=== PATIENT | female | born 1990 | race Caucasian/White ===

== ENCOUNTER 2017-06-25 21:00 | Day surgery (SDC) | payer BC ==
[2017-06-25] MEDS ORDERED: Sodium Chloride 0.9% 10 ML Syringe FLUSH PRN (21:28)
[2017-06-25] MEDS ORDERED: Lactated Ringers 1,000 ML IV SCH (21:30)
[2017-06-25] MEDS ORDERED: Lactated Ringers 500 ML IV ONE (21:38)
--- NOTE | 2017-06-25 21:50 | EDM.PDOC ---
ED HPI GENERAL MEDICAL PROBLEM - General Chief Complaint: [employer]KE [employer]ER Problem Stated Complaint: 5 1/2 WEEKS MAYBE MISCARRIAGING Time Seen by Provider: 06/25/17 21:15 Source of Information: Reports: Patient History Limitations: Reports: No Limitations - History of Present Illness INITIAL COMMENTS - FREE TEXT/NARRATIVE: The patient presents with vaginal bleeding and cramping. She was 5 1/2 weeks but recent US showed it was a nonviable . Dr Peterson ordered some misoprosol and since about 3:30pm she has been bleeding and having contractions. She says for the past couple hours she has been soaking a pad per 1/2 hour. She has no fever, chills, cough, congestion, chest pain, shortness of breath, lightheadedness, nausea or vomiting. She is G2. Onset: Sudden Duration: Hour(s): (3:30pm) Location: Reports: Pelvis Quality: Reports: Other (cramping) Severity: Moderate Improves with: Reports: None Worsens with: Reports: None Associated Symptoms: Reports: No Other Symptoms Uterine Pain Score (Numeric/FACES): 4 - Related Data Allergies Allergy/AdvReac Type Severity Reaction Status Date / Time acetaminophen [From Vicodin] Allergy Cannot Verified 06/25/17 21:21 Remember amoxicillin Allergy Cannot Verified 06/25/17 21:21 Remember Fish Containing Products Allergy Difficulty Verified 06/25/17 21:21 Breathing hydrocodone [From Vicodin] Allergy Cannot Verified 06/25/17 21:21 Remember Home Meds: Home Meds Albuterol [Proair HFA] 2 puff INH Q6H PRN 06/25/17 [History] Formoterol/Mometasone [Dulera 100 MCG/5 MCG] 2 puff INH DAILY PRN 06/25/17 [ History] Misoprostol 800 mcg VAG ASDIRECTED 06/25/17 [History] Oxycodone. 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 Musculoskeletal History: Reports: Fracture - Past Surgical History Musculoskeletal Surgical History: Reports: Other (See Below) Other Musculoskeletal Surgeries/Procedures:: Ankle surg x2, back surg x4 Social & Family History - Family History Family Medical History: Noncontributory - Tobacco Use Smoking Status *Q: Never Smoker - Recreational Drug Use Recreational Drug Use: No ED ROS GENERAL - Review of Systems Review Of Systems: See Below Constitutional: Reports: No Symptoms HEENT: Reports: No Symptoms Respiratory: Reports: No Symptoms Cardiovascular: Reports: No Symptoms Endocrine: Reports: No Symptoms GI/Abdominal: Reports: Abdominal Pain. Denies: Diarrhea, Nausea, Vomiting : Reports: Other (Vaginal bleeding and cramping) ED EXAM - Physical Exam Exam: See Below Exam Limited By: No Limitations General Appearance: Alert, No Apparent Distress Ears: Normal External Exam Nose: Normal Inspection Head: Atraumatic, Normocephalic Neck: Normal Inspection Respiratory/Chest: No Respiratory Distress, Lungs Clear, Normal Breath Sounds Cardiovascular: Regular Rate, Rhythm, No Edema, No Murmur GI/Abdominal Exam: Soft, No Organomegaly, No Mass, Tender (Mild tenderness to the lower abdomen) Course - Vital Signs Last Recorded V/S: Last Vital Signs Temp 97.3 F 06/25/17 21:15 Pulse 115 H 06/25/17 21:15 Resp 16 06/25/17 21:15 BP 130/102 H 06/25/17 21:15 Pulse Ox 100 06/25/17 21:15 Orthostatic Blood Pressure [ 91/68 Standing] Orthostatic Blood Pressure [ 108/69 Sitting] Orthostatic Blood Pressure [ 116/80 Supine] - Orders/Labs/Meds Orders: Active Orders 24 hr Category Date Time Status Peripheral IV Care [RC] . DIRECTED Care 06/25/17 21:29 Active OB Transvaginal [US] Stat Exams 06/25/17 21:32 Taken ABO/RH TYPE [BBK] Stat Lab 06/25/17 21:44 Results PATIENT RETYPE [BBK] Stat Lab 06/25/17 21:44 Results Lactated Ringers [Ringers, Lactated] 1,000 ml Med 06/25/17 21:30 Active IV ASDIRECTED Sodium Chloride 0.9% [Saline Flush] Med 06/25/17 21:28 Active 10 ml FLUSH ASDIRECTED PRN Peripheral IV Insertion Adult [OM.PC] Routine Oth 06/25/17 21:28 Ordered Medication Orders Lactated Ringer's (Ringers, Lactated) 1,000 mls @ 150 mls/hr IV ASDIRECTED YANIV Last Admin: 06/25/17 23:13 Dose: 150 mls/hr Sodium Chloride (Saline Flush) 10 ml FLUSH ASDIRECTED PRN PRN Reason: Keep Vein Open Last Admin: 06/25/17 21:58 Dose: 10 ml Labs: Laboratory Tests 06/25/17 06/25/17 06/25/17 Range/Units 21:44 21:44 21:44 WBC 16.57 H (3.98-10.04) K/mm3 RBC 4.24 (3.98-5.22) M/mm3 Hgb 11.6 (11.2-15.7) gm/L Hct 33.5 L (34.1-44.9) % MCV 79.0 L (79.4-94.8) fl MCH 27.4 (25.6-32.2) pg MCHC 34.6 (32.2-35.5) g/dl RDW Std Deviation 39.4 (36.4-46.3) fL Plt Count 295 (182-369) K/mm3 MPV 10.3 (9.4-12.3) fl Neut % (Auto) 69.3 (34.0-71.1) % Lymph % (Auto) 20.9 (19.3-51.7) % [place] % (Auto) 7.1 (4.7-12.5) % Eos % (Auto) 2.2 (0.7-5.8) Baso % (Auto) 0.2 (0.1-1.2) % Neut # (Auto) 11.47 H (1.56-6.13) K/mm3 Lymph # (Auto) 3.47 (1.18-3.74) K/mm3 [place] # (Auto) 1.18 H (0.24-0.36) K/mm3 Eos # (Auto) 0.36 (0.04-0.36) K/mm3 Baso # (Auto) 0.04 (0.01-0.08) K/mm3 HCG, Quant 887.0 mIU/mL Blood Type O POSITIVE Meds: Medications Generic Name Dose Route Start Last Admin Trade Name Freq PRN Reason Stop Dose Admin Lactated Ringer's 1,000 mls @ 150 mls/hr 06/25/17 21:30 06/25/17 23:13 Ringers, Lactated IV 150 mls/hr ASDIRECTED YANIV Administration Sodium Chloride 10 ml 06/25/17 21:28 06/25/17 21:58 Saline Flush FLUSH 10 ml ASDIRECTED PRN Administration Keep Vein Open Discontinued Medications Generic Name Dose Route Start Last Admin Trade Name Armenq PRN Reason Stop Dose Admin Fentanyl 100 mcg 06/25/17 21:29 06/25/17 22:55 Sublimaze IVPUSH 06/25/17 21:30 100 mcg ONETIME ONE Administration Lactated Ringer's 500 mls @ 1,000 mls/hr 06/25/17 21:38 06/25/17 21:51 Ringers, Lactated IV 06/25/17 22:07 1,000 mls/hr .BOLUS ONE Administration Lactated Ringer's 1,000 mls @ 1,000 mls/hr 06/25/17 22:00 06/25/17 22:57 Ringers, Lactated IV 06/25/17 22:37 Not Given .BOLUS ONE Ondansetron HCl 4 mg 06/25/17 21:56 06/25/17 21:57 Zofran IVPUSH 06/25/17 21:57 4 mg ONETIME ONE Administration Ondansetron HCl Confirm 06/25/17 22:01 06/25/17 22:56 Zofran Administered 06/25/17 22:02 Not Given Dose 4 mg .ROUTE .[facility] ONE - Re-Assessments/Exams Free Text/Narrative Re-Assessment/Exam: 06/25/17 21:49 I ordered an IV LR 500ml bolus and then 150mL/hr, US, and labs. I called Dr Peterson and she wanted to know what the US shows. 06/25/17 23:34 Her WBC was elevated at 16.57. Her Hgb was normal at 11.6. Her HCG was 887. Her blood type is O positive. Her US shows possible single intrauterine gestational sac measuring 5 weeks 0 day. No yolk sac, embryo or heart rate identified. The patient was light headed and tachycardic when she stood up to get cleaned. She soaked an adult depends and she had a large clot. I called Dr Peterson and she will come take the patient for a D&C. Departure - Departure Time of Disposition: 23:30 Disposition: Refer to Observation Condition: Serious Clinical Impression: Incomplete , Vaginal bleeding - Discharge Information Referrals: Mary Peterson MD [Primary Care Provider] - Forms: ED Department Discharge - My Orders Last 24 Hours: My Active Orders 06/25/17 21:28 Sodium Chloride 0.9% [Saline Flush] 10 ml FLUSH ASDIRECTED PRN Peripheral IV Insertion Adult [OM.PC] Routine 06/25/17 21:29 Peripheral IV Care [RC] . DIRECTED 06/25/17 21:30 Lactated Ringers [Ringers, Lactated] 1,000 ml IV ASDIRECTED 06/25/17 21:32 OB Transvaginal [US] Stat 06/25/17 21:44 ABO/RH TYPE [BBK] Stat PATIENT RETYPE [BBK] Stat - Assessment/Plan Last 24 Hours: My Active Orders 06/25/17 21:28 Sodium Chloride 0.9% [Saline Flush] 10 ml FLUSH ASDIRECTED PRN Peripheral IV Insertion Adult [OM.PC] Routine 06/25/17 21:29 Peripheral IV Care [RC] . DIRECTED 06/25/17 21:30 Lactated Ringers [Ringers, Lactated] 1,000 ml IV ASDIRECTED 06/25/17 21:32 OB Transvaginal [US] Stat 06/25/17 21:44 ABO/RH TYPE [BBK] Stat PATIENT RETYPE [BBK] Stat
[2017-06-25] MEDS: fentaNYL 100 MCG/2 ML SDV IVPUSH ONE ×2 (21:52→22:55)
[2017-06-25] MEDS ORDERED: Ondansetron 4 MG/2 ML SDV IVPUSH ONE (21:56)
[2017-06-25] MEDS ORDERED: Lactated Ringers 1,000 ML IV ONE (22:00)
[2017-06-25] MEDS ORDERED: Ondansetron 4 MG/2 ML SDV ONE (22:01)
--- NOTE | 2017-06-25 23:55 | PCM.LDHP ---
L&D History of Present Illness - General Date of Service: 06/25/17 Admit Problem/Dx: Patient Status Order with Admit Dx/Problem 06/25/17 23:48 Patient Status [ADT] Routine Admission Diagnosis/Problem Admission Diagnosis/Problem Incomplete Source of Information: Patient - History of Present Illness Introduction:: 27 year old who had first positive test May 16 and has been seeing me for eval for question of non-viable and was seen in clinic today with ultrasound demonstrating nonviable and decided to use cytotec to attempt to facilitate passage presents with significant bleeding. Ultrasound shows continued retained POCs. Patient understood risks of dilation and curettage and knew that might be outcome with misoprostol. Understands and wishes to proceed. Pain Score: 7 - Related Data Allergies/Adverse Reactions: Allergies Allergy/AdvReac Type Severity Reaction Status Date / Time acetaminophen [From Vicodin] Allergy Cannot Verified 06/25/17 21:21 Remember amoxicillin Allergy Cannot Verified 06/25/17 21:21 Remember Fish Containing Products Allergy Difficulty Verified 06/25/17 21:21 Breathing hydrocodone [From Vicodin] Allergy Cannot Verified 06/25/17 21:21 Remember Home Medications: Home Meds Albuterol [Proair HFA] 2 puff INH Q6H PRN 06/25/17 [History] Formoterol/Mometasone [Dulera 100 MCG/5 MCG] 2 puff INH DAILY PRN 06/25/17 [ History] Misoprostol 800 mcg VAG ASDIRECTED 06/25/17 [History] Oxycodone. 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 Musculoskeletal History: Reports: Fracture - Past Surgical History Musculoskeletal Surgical History: Reports: Other (See Below) Other Musculoskeletal Surgeries/Procedures:: Ankle surg x2, back surg x4 Social & Family History - Family History Family Medical History: Noncontributory - Tobacco Use Smoking Status *Q: Never Smoker - Recreational Drug Use Recreational Drug Use: No H&P Review of Systems - Review of Systems: Review Of Systems: See Below General: Reports: No Symptoms HEENT: Reports: No Symptoms Pulmonary: Reports: No Symptoms Cardiovascular: Reports: No Symptoms Gastrointestinal: Reports: No Symptoms Genitourinary: Reports: Other Musculoskeletal: Reports: No Symptoms Skin: Reports: No Symptoms Psychiatric: Reports: No Symptoms Neurological: Reports: No Symptoms Hematologic/Lymphatic: Reports: No Symptoms Immunologic: Reports: No Symptoms L&D Exam - Exam Exam: See Below - Vital Signs Vital Signs: Last Vital Signs Temp 36.3 C 06/25/17 21:15 Pulse 115 H 06/25/17 21:15 Resp 16 06/25/17 21:15 BP 130/102 H 06/25/17 21:15 Pulse Ox 100 06/25/17 21:15 Orthostatic Blood Pressure [ 91/68 Standing] Orthostatic Blood Pressure [ 108/69 Sitting] Orthostatic Blood Pressure [ 116/80 Supine] Weight: 78.925 kg - Exam General: Alert, Oriented, Cooperative (pale, supine), Other HEENT: PERRLA, Conjunctiva Clear, EACs Clear, EOMI, Hearing Intact, Mucosa Moist & [place], Nares Patent, Normal Nasal Septum, Posterior Pharynx Clear, TMs Clear Neck: Supple, Trachea Midline Lungs: Clear to Auscultation, Normal Respiratory Effort Cardiovascular: Regular Rate, Regular Rhythm GI/Abdominal Exam: Normal Bowel Sounds, Soft, Non-Tender, No Organomegaly, No Distention, No Abnormal Bruit, No Mass, Pelvis Stable Back Exam: Normal Inspection, Full Range of Motion Extremities: Normal Inspection, Normal Range of Motion, Non-Tender, No Pedal Edema, Normal Capillary Refill Skin: Warm, Dry, Intact Neurological: Cranial Nerves Intact, Reflexes Equal Bilateral Psychiatric: Alert, Normal Affect, Normal Mood - Patient Data Lab Results Last 24 hrs: Laboratory Results - last 24 hr 06/25/17 06/25/17 06/25/17 Range/Units 21:44 21:44 21:44 WBC 16.57 H (3.98-10.04) K/mm3 RBC 4.24 (3.98-5.22) M/mm3 Hgb 11.6 (11.2-15.7) gm/L Hct 33.5 L (34.1-44.9) % MCV 79.0 L (79.4-94.8) fl MCH 27.4 (25.6-32.2) pg MCHC 34.6 (32.2-35.5) g/dl RDW Std Deviation 39.4 (36.4-46.3) fL Plt Count 295 (182-369) K/mm3 MPV 10.3 (9.4-12.3) fl Neut % (Auto) 69.3 (34.0-71.1) % Lymph % (Auto) 20.9 (19.3-51.7) % [place] % (Auto) 7.1 (4.7-12.5) % Eos % (Auto) 2.2 (0.7-5.8) Baso % (Auto) 0.2 (0.1-1.2) % Neut # (Auto) 11.47 H (1.56-6.13) K/mm3 Lymph # (Auto) 3.47 (1.18-3.74) K/mm3 [place] # (Auto) 1.18 H (0.24-0.36) K/mm3 Eos # (Auto) 0.36 (0.04-0.36) K/mm3 Baso # (Auto) 0.04 (0.01-0.08) K/mm3 HCG, Quant 887.0 mIU/mL Blood Type O POSITIVE Result Diagrams: 06/25/17 21:44 Problem List Initiated/Reviewed/Updated: Yes Orders Last 24hrs: Active Orders 24 hr Category Date Time Status Patient Status [ADT] Routine ADT 06/25/17 23:48 Active Peripheral IV Care [RC] . DIRECTED Care 06/25/17 21:29 Active OB Transvaginal [US] Stat Exams 06/25/17 21:32 Taken ABO/RH TYPE [BBK] Stat Lab 06/25/17 21:44 Results PATIENT RETYPE [BBK] Stat Lab 06/25/17 21:44 Results Lactated Ringers [Ringers, Lactated] 1,000 ml Med 06/25/17 21:30 Active IV ASDIRECTED Sodium Chloride 0.9% [Saline Flush] Med 06/25/17 21:28 Active 10 ml FLUSH ASDIRECTED PRN Peripheral IV Insertion Adult [OM.PC] Routine Oth 06/25/17 21:28 Ordered Schedule Procedure [COMM] Stat Oth 06/25/17 23:49 Ordered Medication Orders Lactated Ringer's (Ringers, Lactated) 1,000 mls @ 150 mls/hr IV ASDIRECTED YANIV Last Admin: 06/25/17 23:13 Dose: 150 mls/hr Sodium Chloride (Saline Flush) 10 ml FLUSH ASDIRECTED PRN PRN Reason: Keep Vein Open Last Admin: 06/25/17 21:58 Dose: 10 ml Assessment/Plan Comment:: Incomplete with hemorrhage. Proceed with dilation and curettage.
--- NOTE | 2017-06-26 00:01 | PCM.PREANE ---
Preanesthetic Assessment - Procedure Proposed Procedure: Uterine Suction D&C - Anesthesia/Transfusion/Family Hx Anesthesia History: Prior Anesthesia Without Reaction Family History of Anesthesia Reaction: No Transfusion History: No Prior Transfusion(s) - Review of Systems General: No Symptoms Pulmonary: Other (asthma- seasonal uses inlahers prn) Cardiovascular: No Symptoms Gastrointestinal: No Symptoms Neurological: No Symptoms Other: Reports: None - Physical Assessment NPO Status Date: 06/25/17 NPO Status Time: 18:30 O2 Sat by Pulse Oximetry: 100 Respiratory Rate: 16 Vital Signs: Last Vital Signs Temp 36.3 C 06/25/17 21:15 Pulse 115 H 06/25/17 21:15 Resp 16 06/25/17 21:15 BP 130/102 H 06/25/17 21:15 Pulse Ox 100 06/25/17 21:15 Orthostatic Blood Pressure [ 91/68 Standing] Orthostatic Blood Pressure [ 108/69 Sitting] Orthostatic Blood Pressure [ 116/80 Supine] Height: 1.6 m Weight: 78.925 kg ASA Class: 2E Mental Status: Alert & Oriented x3 Airway Class: Mallampati = 2 Dentition: Reports: Normal Dentition Thyro-Mental Finger Breadths: 3 Mouth Opening Finger Breadths: 3 ROM/Head Extension: Full Lungs: Clear to Auscultation, Normal Respiratory Effort Cardiovascular: Regular Rate, Regular Rhythm - Lab Values: Laboratory Last Values WBC 16.57 K/mm3 (3.98-10.04) H 06/25/17 21:44 RBC 4.24 M/mm3 (3.98-5.22) 06/25/17 21:44 Hgb 11.6 gm/L (11.2-15.7) 06/25/17 21:44 Hct 33.5 % (34.1-44.9) L 06/25/17 21:44 MCV 79.0 fl (79.4-94.8) L 06/25/17 21:44 MCH 27.4 pg (25.6-32.2) 06/25/17 21:44 MCHC 34.6 g/dl (32.2-35.5) 06/25/17 21:44 RDW Std Deviation 39.4 fL (36.4-46.3) 06/25/17 21:44 Plt Count 295 K/mm3 (182-369) 06/25/17 21:44 MPV 10.3 fl (9.4-12.3) 06/25/17 21:44 Neut % (Auto) 69.3 % (34.0-71.1) 06/25/17 21:44 Lymph % (Auto) 20.9 % (19.3-51.7) 06/25/17 21:44 [place] % (Auto) 7.1 % (4.7-12.5) 06/25/17 21:44 Eos % (Auto) 2.2 (0.7-5.8) 06/25/17 21:44 Baso % (Auto) 0.2 % (0.1-1.2) 06/25/17 21:44 Neut # (Auto) 11.47 K/mm3 (1.56-6.13) H 06/25/17 21:44 Lymph # (Auto) 3.47 K/mm3 (1.18-3.74) 06/25/17 21:44 [place] # (Auto) 1.18 K/mm3 (0.24-0.36) H 06/25/17 21:44 Eos # (Auto) 0.36 K/mm3 (0.04-0.36) 06/25/17 21:44 Baso # (Auto) 0.04 K/mm3 (0.01-0.08) 06/25/17 21:44 HCG, Quant 887.0 mIU/mL 06/25/17 21:44 Blood Type O POSITIVE 06/25/17 21:44 - Allergies Allergies/Adverse Reactions: Allergies Allergy/AdvReac Type Severity Reaction Status Date / Time acetaminophen [From Vicodin] Allergy Cannot Verified 06/25/17 21:21 Remember amoxicillin Allergy Cannot Verified 06/25/17 21:21 Remember Fish Containing Products Allergy Difficulty Verified 06/25/17 21:21 Breathing hydrocodone [From Vicodin] Allergy Cannot Verified 06/25/17 21:21 Remember - Blood Blood Available: No Product(s) Available: None - Anesthesia Plan Pre-Op Medication Ordered: None - Acknowledgements Anesthesia Type Planned: General Anesthesia Pt an Appropriate Candidate for the Planned Anesthesia: Yes Alternatives and Risks of Anesthesia Discussed w Pt/Guardian: Yes Pt/Guardian Understands and Agrees with Anesthesia Plan: Yes PreAnesthesia Questionnaire - Past Health History Medical/Surgical History: Denies 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 1 tab PO Q6H 06/25/17 [History] - CURRENT (IN HOUSE) MEDS Current Meds: Current Medications Lactated Ringer's (Ringers, Lactated) 1,000 mls @ 150 mls/hr IV ASDIRECTED YANIV Last Admin: 06/25/17 23:13 Dose: 150 mls/hr Sodium Chloride (Saline Flush) 10 ml FLUSH ASDIRECTED PRN PRN Reason: Keep Vein Open Last Admin: 06/25/17 21:58 Dose: 10 ml Discontinued Medications Fentanyl (Sublimaze) 100 mcg IVPUSH ONETIME ONE Stop: 06/25/17 21:30 Last Admin: 06/25/17 22:55 Dose: 100 mcg Lactated Ringer's (Ringers, Lactated) 500 mls @ 1,000 mls/hr IV .BOLUS ONE Stop: 06/25/17 22:07 Last Admin: 06/25/17 21:51 Dose: 1,000 mls/hr Lactated Ringer's (Ringers, Lactated) 1,000 mls @ 1,000 mls/hr IV .BOLUS ONE Stop: 06/25/17 22:37 Last Admin: 06/25/17 22:57 Dose: Not Given Ondansetron HCl (Zofran) 4 mg IVPUSH ONETIME ONE Stop: 06/25/17 21:57 Last Admin: 06/25/17 21:57 Dose: 4 mg Ondansetron HCl (Zofran) Confirm Administered Dose 4 mg .ROUTE .STK-MED ONE Stop: 06/25/17 22:02 Last Admin: 06/25/17 22:56 Dose: Not Given
[2017-06-26] MEDS ORDERED: Lidocaine 1% 4 ML ONE (00:27)
[2017-06-26] MEDS ORDERED: Ondansetron 4 MG/2 ML SDV ONE (00:27)
[2017-06-26] MEDS ORDERED: Midazolam 1 MG/ML 2 ML SDV ONE (00:27)
[2017-06-26] MEDS ORDERED: fentaNYL 250 MCG/5 ML SDV ONE (00:27)
[2017-06-26] MEDS ORDERED: Dexamethasone 4 MG/ML 5 ML MDV ONE (00:27)
[2017-06-26] MEDS ORDERED: Succinylcholine/Normal Saline 100 MG/5 ML Syringe ONE (00:27)
[2017-06-26] MEDS ORDERED: Propofol 200 MG/20 ML SDV ONE (00:27)
--- NOTE | 2017-06-26 00:45 | PCM.OPNOTE ---
- General Post-Op/Procedure Note Date of Surgery/Procedure: 06/26/17 Operative Procedure(s): suction dilation and curettage Findings: Products of conception. Pre Op Diagnosis: incomplete Post-Op Diagnosis: Same Anesthesia Technique: General ET Tube Primary Surgeon: Mary Huddleston Anesthesia Provider: Robbie Oviedo Fluid Replacement, Intraop: 900 Output, Urine Amount: 100 EBL in mLs: 25 Complications: None Condition: Good Free Text/Narrative:: Patient taken to OR after RBA discussed. She SSU and wishes to proceed. GETA initiated. Prepped and draped in lithotomy in lori stirups. Self retaining speculum placed. Anterior lip of cervix grasped with an allis. No dilation required. 7 mm suction curette passed. Multiple passes until good janet obtained. Minimal bleeding. Instruments removed and patient awakened and taken to pacu in good condition.
--- NOTE | 2017-06-26 00:51 | PCM.POSTAN ---
POST ANESTHESIA ASSESSMENT - MENTAL STATUS Mental Status: Alert, Oriented - VITAL SIGNS Pulse Rate: 105 SaO2: 100 Resp Rate: 14 Blood Pressure: 127/83 Temperature: 37.4 C - RESPIRATORY Respiratory Status: Respiratory Rate WNL, Airway Patent, O2 Saturation Stable, Supplemental Oxygen - CARDIOVASCULAR CV Status: Pulse Rate WNL, Blood Pressure Stable - GASTROINTESTINAL GI Status: No Symptoms - PAIN Pain Score: 0 - POST OP HYDRATION Hydration Status: Adequate & Stable
[2017-06-26] MEDS ORDERED: Ketorolac 30 MG/ML SDV ONE (00:53)
[2017-06-26] MEDS ORDERED: Meperidine PF 50 MG/ML Syringe IVPUSH PRN (00:59)
[2017-06-26] MEDS ORDERED: fentaNYL 100 MCG/2 ML SDV IVPUSH PRN (00:59)
[2017-06-26] MEDS ORDERED: diphenhydrAMINE 50 MG/ML SDV IVPUSH PRN (00:59)
[2017-06-26] MEDS ORDERED: Ondansetron 4 MG/2 ML SDV IVPUSH PRN (00:59)
[2017-06-26] MEDS ORDERED: HYDROmorphone 0.5 MG/0.5 ML Syringe IVPUSH ONE (00:59)
--- NOTE | 2017-06-26 01:32 | PCM48HPAN ---
Post Anesthesia Note - EVALUATION WITHIN 48HRS OF ANESTHETIC Vital Signs in Normal Range: Yes Patient Participated in Evaluation: Yes Respiratory Function Stable: Yes Airway Patent: Yes Cardiovascular Function Stable: Yes Hydration Status Stable: Yes Pain Control Satisfactory: Yes Nausea and Vomiting Control Satisfactory: Yes Mental Status Recovered: Yes
--- NOTE | 2017-06-26 08:49 | US ---
First trimester obstetrical ultrasound: Multiple real-time images were obtained transvaginally. Thickened heterogeneous endometrium is seen. Minimal cystic area is identified and difficult to exclude very small gestational sac. Sac size measures approximately 0.45 cm correlating to 5 weeks 0 days. No pole or yolk sac is seen. Ovaries are unremarkable. Impression: 1. Small cystic area within a heterogeneous endometrium. Gestational sac is possible but no yolk sac or pole seen at this time. If patient does not miscarry, follow-up study could be considered in 11 days to further evaluate. Diagnostic code #3 Agree with preliminary report issued by [employer] ([employer] preliminary report dictated on 06/26/17, 12:16 AM Central Time)
== END 2017-06-26 02:12 | disposition home or self-care (01) ==
LOC: JD.ED 21:00 → MERGE 23:48 → JD.SDS 23:48
PROVIDERS: ATTEND Obstetrics & Gynecology
DX: O03.4 Incomplete spontaneous abortion without complication (principal); Z88.1 Allergy status to other antibiotic agents; Z88.8 Allergy status to other drugs, medicaments and biological substances; Z91.013 Allergy to seafood; Z79.899 Other long term (current) drug therapy
CPT/HCPCS: 36415; 59812; 76817; 84702; 85025; 86900; 86901; 96361; 96374; 96375; 99285; J0330; J1100; J1885; J2250; J2405; J3010; J7050; J7120; 01965; 99284; J2001; J2704

== ENCOUNTER 2018-06-17 11:31 | Observation (INO) | payer BC ==
[2018-06-17] MEDS ORDERED: Lactated Ringers 1,000 ML IV ONE (13:50)
[2018-06-17] MEDS ORDERED: Sodium Chloride 0.9% 10 ML Syringe FLUSH PRN (15:42)
[2018-06-17] MEDS ORDERED: Lactated Ringers 1,000 ML IV SCH (15:45)
[2018-06-17] MEDS ORDERED: Lactated Ringers 1,000 ML ONE (15:52)
--- NOTE | 2018-06-17 15:53 | PCM.LDHP ---
L&D History of Present Illness - General Date of Service: 06/17/18 Admit Problem/Dx: Patient Status Order with Admit Dx/Problem 06/17/18 15:42 Patient Status [ADT] Routine Admission Diagnosis/Problem Admission Diagnosis/Problem labor Source of Information: Patient History Limitations: Reports: No Limitations - History of Present Illness Introduction:: Kalie Martinez is a 28 year old at 35 weeks 0 days by LMP consistent with 10 week ultrasound who was sent to labor and delivery from the clinic after having contractions and was found to be 1 cm dilated. She states that the contractions were becoming more frequent and painful while she was on labor and delivery. She states that not all of the contractions were painful but they were becoming much more painful while she has been on labor and delivery. She was initially oral rehydrating that did not cause any change in her contractions and then was given a IV fluid bolus that did not cause any change with her contractions. She denies any leaking of fluid or vaginal bleeding. Reports good movement. Timing/Duration: Reports: constant/continuous (every 2-6 minutes), getting worse Location, : Reports: Lower back, Pelvic, Uterus Quality: Reports: Pressure, Throbbing Severity: Moderate Improves with: Reports: None Worsens with: Reports: None Associated Symptoms: Denies: vaginal bleeding, vaginal discharge, vaginal fluid Present Illness Comments:: Kalie Martinez is a 28-year-old 0-0 at 35 weeks 0 days by LMP consistent with 10 week ultrasound. She has had routine care with Dr. Hurst since 10 weeks gestational age. Review of her labs shows O+ blood type with negative antibody screen. Her hematocrit was 40.5 with hemoglobin of 14.0 and platelets of 315 on 01/01/2018. She is rubella immune. Her RPR, hepatitis B surface antigen and HIV tests were all negative. Her urine culture was negative and only showed signs of contamination. Her gonorrhea and chlamydia test are both negative. Her anatomy ultrasound was normal with out any abnormalities. No evidence of placenta previa. Her 1 hour glucose test was normal at 97. Her repeat hematocrit was 36.4 with hemoglobin of 12.2 and platelets of 308 on 04/16/2018. She received TDaP vaccine on 05/28/2018. She had GBS swab done in the clinic on 06/17/2018 when she initially was seen for these contractions and possible labor. 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: Spontaneous at early gestation on 07/10/2016 G2: Spontaneous at early gestation on 06/12/2017 G3: Current Her has been complicated by: * GBS unknown with penicillin allergy with severe anaphylaxis with swelling of her tongue and rash * History of asthma well controlled on medications * History of back surgery * UTI in - Related Data Allergies/Adverse Reactions: Allergies Allergy/AdvReac Type Severity Reaction Status Date / Time acetaminophen [From Vicodin] Allergy Cannot Verified 06/25/17 21:21 Remember amoxicillin Allergy Cannot Verified 06/25/17 21:21 Remember Fish Containing Products Allergy Difficulty Verified 06/25/17 21:21 Breathing hydrocodone [From Vicodin] Allergy Cannot Verified 06/25/17 21:21 Remember Home Medications: Home Meds Albuterol [Proair HFA] 2 puff INH Q6H PRN 06/25/17 [History] Formoterol/Mometasone [Dulera 100 MCG/5 MCG] 2 puff INH DAILY PRN 06/25/17 [ History] Oxycodone. 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 History: Reports: Spontaneous : 3 Para: 0 Musculoskeletal History: Reports: Fracture - Past Surgical History Musculoskeletal Surgical History: Reports: Other (See Below) Other Musculoskeletal Surgeries/Procedures:: Ankle surg x2, back surg x4 Social & Family History - Family History Family Medical History: Noncontributory - Tobacco Use Smoking Status *Q: Never Smoker Tobacco Use Within Last Twelve Months: No - Tobacco Core Measures Tobacco Use/Smoking Within Last 30 Days: No Smokeless Tobacco Use in Last 30 Days: No - Alcohol Use Alcohol Use History: No - Recreational Drug Use Recreational Drug Use: No Drug Use in Last 12 Months: No H&P Review of Systems - Review of Systems: Review Of Systems: See Below General: Denies: Fever, Chills, Malaise, Weakness HEENT: Denies: Post Nasal Drip, Sinus Congestion, Sore Throat, Visual Changes Pulmonary: Denies: Shortness of Breath, Wheezing Cardiovascular: Denies: Chest Pain, Palpitations Gastrointestinal: Denies: Abdominal Pain, Constipation, Diarrhea, Nausea, Vomiting Genitourinary: Denies: Dysuria, Frequency, Burning, Pain, Urgency Musculoskeletal: Denies: Back Pain Psychiatric: Denies: Depression, Anxiety Immunologic: Reports: Anaphylaxis (with amoxicillin) L&D Exam - Exam Exam: See Below - Vital Signs Vital Signs: HR: 95 BP: 127/77 Temp: 98.4 F RR: 18 Weight: 95.799 kg - OB Specific Contraction Duration (sec): 45-75 Contraction Frequency (min): 2-4 Contraction Intensity: Moderate Movement: Active Heart Tones: Present Heart Tones per Min: 145 (+15 x 15 accelerations, no decelerations) Heart Rate (FHR) Variability: Moderate (6-25 bmp) Presentation: Vertex Estimated Weight: 6.5-7 lbs by [place] - Salazar Score Salazar Score Cervix Position: Posterior Slaazar Score Consistency: Soft Salazar Score Effacement: 51-70% (70%) Salazar Score Dilation: 1-2 cm (2.5 cm) Salazar Score Infant's Station: -2 Salazar Score Total: 6 - Exam General: Alert, Oriented HEENT: Conjunctiva Clear, EOMI Neck: Supple, Trachea Midline Lungs: Clear to Auscultation, Normal Respiratory Effort Cardiovascular: Regular Rate, Regular Rhythm GI/Abdominal Exam: Soft, Non-Tender, No Distention. No: Guarding, Rigid, Rebound Genitourinary: Normal external exam Extremities: Normal Inspection, No Pedal Edema Skin: Warm, Dry, Intact Psychiatric: Alert, Normal Affect, Normal Mood - Problem List (1) 35 weeks gestation of SNOMED Code(s): 76668129 ICD Code: Z3A.35 - 35 WEEKS GESTATION OF Status: Acute Current Visit: Yes (2) labor SNOMED Code(s): 1838263 ICD Code: O60.00 - LABOR WITHOUT DELIVERY, UNSPECIFIED TRIMESTER Status: Acute Current Visit: Yes (3) Asthma SNOMED Code(s): 403607537 ICD Code: J45.909 - UNSPECIFIED ASTHMA, UNCOMPLICATED Status: Acute Current Visit: Yes (4) Penicillin allergy SNOMED Code(s): 04143389 ICD Code: Z88.0 - ALLERGY STATUS TO PENICILLIN Status: Acute Current Visit: Yes Problem List Initiated/Reviewed/Updated: Yes Orders Last 24hrs: Active Orders 24 hr Category Date Time Status Patient Status [ADT] Routine ADT 06/17/18 15:42 Ordered Activity as Tolerated [RC] PFP Care 06/17/18 15:42 Ordered Heart Tones [RC] ASDIRECTED Care 06/17/18 15:43 Ordered Notify Provider [RC] PRN Care 06/17/18 15:42 Ordered Peripheral IV Care [RC] . DIRECTED Care 06/17/18 15:43 Ordered Vital Signs [RC] PER UNIT ROUTINE Care 06/17/18 15:42 Ordered Regular Diet [DIET] Diet 06/17/18 Dinner Active CBC W/O DIFF,HEMOGRAM [HEME] Routine Lab 06/17/18 15:42 Stop Req Lactated Ringers [Ringers, Lactated] 1,000 ml Med 06/17/18 15:45 Ordered IV ASDIRECTED Sodium Chloride 0.9% [Saline Flush] Med 06/17/18 15:42 Ordered 10 ml FLUSH ASDIRECTED PRN Vancomycin [Vancocin] 1 gm Med 06/17/18 15:45 Ordered Sodium Chloride 0.9% [Normal Saline] 250 ml IV Q12H Electronic Heart Tones Ext w TOCO [WOMSER] Oth 06/17/18 15:42 Ordered Routine Electronic Heart Tones Internal [WOMSER] Per Unit Oth 06/17/18 15:42 Ordered Routine Peripheral IV Insertion Adult [OM.PC] Routine Oth 06/17/18 15:42 Ordered Resuscitation Status Routine Resus Stat 06/17/18 15:42 Ordered Medication Orders Lactated Ringer's (Ringers, Lactated) 1,000 mls @ 125 mls/hr IV ASDIRECTED YANIV Vancomycin HCl 1 gm/ Sodium (Chloride) 250 mls @ 250 mls/hr IV Q12H YANIV Sodium Chloride (Saline Flush) 10 ml FLUSH ASDIRECTED PRN PRN Reason: Keep Vein Open Assessment/Plan Comment:: * Patient at 35 weeks 0 days with suspected labor given cervical change from 1 to 2.5 cm or the course of 4-5 hours. 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 Recommendation was for her transfer to [place] for higher level of care. This is discussed with the patient and she was in agreement with this plan. Plan is to transfer patient to [facility] and accepting physician was Dr. hicks. * Patient with labor at 35 weeks gestational age and unknown GBS status. GBS swab was collected in the clinic today. Patient has a history of penicillin allergy with anaphylaxis with swelling of her tongue and rash. She has never tried cephalosporins and so decision was made to start patient on vancomycin for GBS prophylaxis. She will be given vancomycin 1 g IV with plan for continuation every 12 hours until delivery or until labor has stopped. * Patient to be on LR@125 mL per hour for total amount of fluid with IV antibiotics. * Discussed possible betamethasone injection for lung maturity with Dr. hicks and felt that this was not indicated at this time. * Patient to be transferred by ambulance secondary to antibiotic need * Patient to be transferred as soon as possible to [facility] in [place] Konstantin Browning M.D. 4:04 PM 06/17/2018
== END 2018-06-17 16:45 ==
LOC: JD.OB 11:31 → UNDOADMOB 11:31 → JD.OB 15:42
PROVIDERS: ADMIT Obstetrics & Gynecology; ATTEND Obstetrics & Gynecology
DX: O60.03 Preterm labor without delivery, third trimester (principal); O99.513 Diseases of the respiratory system complicating pregnancy, third trimester; J45.909 Unspecified asthma, uncomplicated; Z3A.35 35 weeks gestation of pregnancy; Z87.59 Personal history of other complications of pregnancy, childbirth and the puerperium; Z88.0 Allergy status to penicillin; Z91.013 Allergy to seafood; Z88.6 Allergy status to analgesic agent; Z88.5 Allergy status to narcotic agent
CPT/HCPCS: 59025; 96365; 96366; 96367; J3370; J7050; J7120; 96361; G0378

== ENCOUNTER 2018-07-08 22:53 | Inpatient (IN) | payer BC ==
[2018-07-08] MEDS ORDERED: Sodium Chloride 0.9% 10 ML Syringe FLUSH PRN (23:18)
[2018-07-08] MEDS ORDERED: Oxytocin/Lactated Ringers 10 UNIT/1,000 ML BAG IV SCH ×2 (23:30)
[2018-07-09] MEDS: Lactated Ringers 1,000 ML IV SCH ×3 (00:14→14:32)
--- NOTE | 2018-07-09 07:58 | PCM.LDHP ---
<Quincy Morse - Last Filed: 07/09/18 13:01> L&D History of Present Illness - General Date of Service: 07/09/18 Admit Problem/Dx: Patient Status Order with Admit Dx/Problem 07/08/18 23:19 Patient Status [ADT] Routine Admission Diagnosis/Problem Admission Diagnosis/Problem Source of Information: Patient History Limitations: Reports: No Limitations - History of Present Illness Introduction:: Kalie is a 28 year old 3 para 0020 white female who is brought in this morning for starting of labor. Currently at 38 weeks 05/18. FANNY is 07/22/2018. Her last menstrual period was October 15 and the date is supported by two ultrasounds conducted on 03/06/2018, 01/03/2018. She has previously has two spontaneous abortions. The first being lost at 7 weeks and the second being lost in 6 weeks. She also had labor with this at 35 weeks. course otherwise has been uneventful. Blood type is O+ with negative antibody screen. VDRL/RPR is negative. Rubella is reactive for immunity. HBsAg is negative, HIV is negative She is group B strep positive. Allergies: Vicodin- nausea, vomiting, diarrhea, vertigo amoxicillin - hives, anaphylaxis Past medical history: States a seasonal asthma that is worst in summer and aggravated by cigarette smoke. Under good control now with limited use of albuterol in non summer months. Denies any other medical history. Medications: Tylenol for pain Prenatals Proair Dulera Albuterol rescue inhaler (last used in December) Tums Past surgical history: History of 4 x back surgeries mainly L4-L5 with hardware 2x ankle surgeries heel cord lengthening Family History: Father alive and well 50 yo history unknown Mother alive 50 yo - DM1 since 11yo, MGM- HTN PGF- prostate CA, HTN, history of HI PGM-Colon CA Social: Lives in [place], [place] in house with one dog and Isaac. She feels safe at home. 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 Denies illicit or prescription drug abuse, denies any tobacco history, admits caffeine 1-2 weekly. No alcohol during , only state rare/ monthly drinking beforehand. Review of systems: General: Patient in mild to moderate distress from contractions but is able to manage says 5/10 for pain and cannot find a comfortable position. Skin: negative HEENT: negative Cardiovascular: negative Respiratory: negative Breasts: negative GI: negative : negative Heme: negative Musculoskeletal: negative Neurological: negative Psychological: negative Endocrine: negative Physical exam: Well developed well nourished pleasant patient in mild to moderate distress intermittently from contractions. Skin is pink warm and dry without lesions. HEENT is PERRL, clear sclera, normocephalic, oral mucosa is moist and pink without swelling or erythema. Neck is supple examination shows trachea is midline. Lungs are clear equal and bilateral with good breath sounds in all [place] Cardiovascular shows regular rate and rhythm with normal S1 and S2 with no appreciated murmurs rubs or gallops. Abdomen is gravid, soft with positive bowel sounds in all quadrants. Extremities show appropriate strength and ROM Neurologically CN2-12 intact Assessment and Plan: 1. 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 2. History of seasonal asthma, well controlled. 3. Group B strept positive, allergic to amoxicillin with anaphylaxis. Will need appropriate antibiotic coverage during labor. 4. O+ blood type, no need for RhoGAM 5. Wishes to attempt breast feeding, may need assistance from nursing staff. Timing/Duration: Reports: minutes: (Regular contractions, about 4-7 minutes apart), intermittent Quality: Reports: Dull, Pressure Pain Score: 5 Improves with: Reports: None Worsens with: Reports: None - Related Data Allergies/Adverse Reactions: Allergies Allergy/AdvReac Type Severity Reaction Status Date / Time acetaminophen [From Vicodin] Allergy Diarrhea Verified 07/09/18 01:35 amoxicillin Allergy Difficulty Verified 07/09/18 01:35 Breathing Fish Containing Products Allergy Difficulty Verified 06/25/17 21:21 Breathing hydrocodone [From Vicodin] Allergy Diarrhea Verified 07/09/18 01:35 Home Medications: Home Meds Albuterol [Proair HFA] 2 puff INH Q6H PRN 06/25/17 [History] Formoterol/Mometasone [Dulera 100 MCG/5 MCG] 2 puff INH DAILY PRN 06/25/17 [ History] Oxycodone. 1 tab PO Q6H 06/25/17 [History] miSOPROStol [Misoprostol] 800 mcg VAG ASDIRECTED 06/25/17 [History] Past Medical History Other HEENT History: glasses for correction, last eye exam years ago Cardiovascular History: Reports: None (denies cardiac history) Respiratory History: Reports: Asthma, Pneumothorax (complication from one back surgery) Other Respiratory History: admits history of asthma aggitated by Summer season and cigarette smoke, currently has proair, rescue inhailer (last used December), and dulera. Gastrointestinal History: Reports: None Genitourinary History: Reports: None [employer] History: Reports: Spontaneous : 3 Para: 0 LMP (Approximate): Other OB/BYN History: . history of 2 spontaneous miscarriages #1 at 7weeks#2 at 6 weeks Musculoskeletal History: Reports: Fracture Neurological History: Reports: None Psychiatric History: Reports: None Endocrine/Metabolic History: Reports: None Hematologic History: Reports: None Immunologic History: Reports: None Oncologic (Cancer) History: Reports: None Dermatologic History: Reports: None - Infectious Disease History Infectious Disease History: Reports: None - Past Surgical History HEENT Surgical History: Reports: None Other HEENT Surgeries/Procedures: wears glasses Musculoskeletal Surgical History: Reports: Other (See Below) Other Musculoskeletal Surgeries/Procedures:: Ankle surg x2, back surg x4, heal cord lengthening Social & Family History - Family History Family Medical History: Noncontributory Other Cardiac Family History: MGM- HTN PGF HTN, HI history Other Endocrine/Metabolic Family History: Mother type 1 DM since 11yo Other Oncologic Family History: PGM Colon, PGF- prostate - Tobacco Use Second Hand Smoke Exposure: No - Caffeine Use Caffeine Use: Reports: Coffee (1-2 per week) - Alcohol Use Alcohol Use History: No Alcohol Use in Last Twelve Months: Yes Alcohol Use Frequency: Rarely Alcohol Use Comment: no drinking since before rarely if monthly when she was - Recreational Drug Use Drug Use in Last 12 Months: No - Living Situation & Occupation Living situation: Reports: with Significant Other 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) H&P Review of Systems - Review of Systems: General: Reports: No Symptoms HEENT: Reports: No Symptoms Pulmonary: Reports: No Symptoms Cardiovascular: Reports: No Symptoms Gastrointestinal: Reports: No Symptoms Genitourinary: Reports: No Symptoms Musculoskeletal: Reports: No Symptoms Skin: Reports: No Symptoms Psychiatric: Reports: No Symptoms Neurological: Reports: No Symptoms Hematologic/Lymphatic: Reports: No Symptoms L&D Exam - Vital Signs Vital Signs: Last Vital Signs Temp 98.3 F 07/08/18 23:09 Pulse 98 07/08/18 23:09 Resp 20 07/08/18 23:09 BP 130/87 07/08/18 23:09 Pulse Ox 99 07/08/18 23:09 Weight: 100.834 kg - OB Specific Contraction Intensity: Moderate Movement: Active Heart Tones: Present Heart Tones per Min: 145 Heart Rate (FHR) Variability: Moderate (6-25 bmp) - Exam General: Alert, Oriented, Cooperative, Mild Distress HEENT: Conjunctiva Clear, EOMI, Hearing Intact, Mucosa Moist & [place], Pupils Equal, Pupils Reactive Neck: Supple, Trachea Midline Lungs: Clear to Auscultation, Normal Respiratory Effort Cardiovascular: Regular Rate, Regular Rhythm, Normal S1, Normal S2 GI/Abdominal Exam: Normal Bowel Sounds (gravid) Back Exam: Normal Inspection, Full Range of Motion Skin: Warm, Dry, Intact Neurological: Cranial Nerves Intact Psychiatric: Alert, Normal Affect, Normal Mood - Patient Data Lab Results Last 24 hrs: Laboratory Results - last 24 hr 07/08/18 Range/Units 23:30 WBC 13.91 H (3.98-10.04) K/mm3 RBC 4.39 (3.98-5.22) M/mm3 Hgb 10.5 L (11.2-15.7) gm/L Hct 32.4 L (34.1-44.9) % MCV 73.8 L (79.4-94.8) fl MCH 23.9 L (25.6-32.2) pg MCHC 32.4 (32.2-35.5) g/dl RDW Std Deviation 41.3 (36.4-46.3) fL Plt Count 223 (182-369) K/mm3 MPV 11.5 (9.4-12.3) fl Neut % (Auto) 66.9 (34.0-71.1) % Lymph % (Auto) 18.3 L (19.3-51.7) % [place] % (Auto) 11.0 (4.7-12.5) % Eos % (Auto) 2.9 (0.7-5.8) Baso % (Auto) 0.2 (0.1-1.2) % Neut # (Auto) 9.30 H (1.56-6.13) K/mm3 Lymph # (Auto) 2.55 (1.18-3.74) K/mm3 [place] # (Auto) 1.53 H (0.24-0.36) K/mm3 Eos # (Auto) 0.40 H (0.04-0.36) K/mm3 Baso # (Auto) 0.03 (0.01-0.08) K/mm3 Manual Slide Review Abnormal smear Result Diagrams: 07/08/18 23:30 Orders Last 24hrs: Active Orders 24 hr Category Date Time Status Patient Status [ADT] Routine ADT 07/08/18 23:19 Active Activity as Tolerated [RC] PFP Care 07/08/18 23:19 Active Communication Order [RC] ASDIRECTED Care 07/08/18 23:19 Active Heart Tones [RC] ASDIRECTED Care 07/08/18 23:19 Active Non Stress Test [RC] PER UNIT ROUTINE Care 07/08/18 23:19 Active Notify Provider [RC] PFP Care 07/08/18 23:19 Active Notify Provider [RC] PRN Care 07/08/18 23:19 Active Peripheral IV Care [RC] . DIRECTED Care 07/08/18 23:20 Active Vital Signs [RC] PER UNIT ROUTINE Care 07/08/18 23:19 Active Regular Diet [DIET] Diet 07/09/18 Breakfast Active RAPID PLASMA REAGIN,RPR [CHEM] Routine Lab 07/08/18 23:30 Received Lactated Ringers [Ringers, Lactated] 1,000 ml Med 07/08/18 23:30 Active IV ASDIRECTED Oxytocin/Lactated Ringers [Pitocin in LR 10 Units/1,000 Med 07/08/18 23:30 Active ML] 10 unit in 1,000 ml IV .CONTINUOUS Oxytocin/Lactated Ringers [Pitocin in LR 10 Units/1,000 Med 07/08/18 23:30 Active ML] 10 unit in 1,000 ml IV TITRATE Sodium Chloride 0.9% [Saline Flush] Med 07/08/18 23:18 Active 10 ml FLUSH ASDIRECTED PRN Vancomycin [Vancocin] 1 gm Med 07/08/18 23:30 Active Sodium Chloride 0.9% [Normal Saline] 250 ml IV Q12H Electronic Heart Tones Ext w TOCO [WOMSER] Oth 07/08/18 23:19 Ordered Routine Electronic Heart Tones Internal [WOMSER] Per Unit Oth 07/08/18 23:19 Ordered Routine Peripheral IV Insertion Adult [OM.PC] Routine Oth 07/08/18 23:19 Ordered Resuscitation Status Routine Resus Stat 07/08/18 23:18 Ordered Medication Orders Lactated Ringer's (Ringers, Lactated) 1,000 mls @ 100 mls/hr IV ASDIRECTED YANIV Last Admin: 07/09/18 00:14 Dose: 100 mls/hr Oxytocin/Lactated Ringer's (Pitocin In Lr 10 Units/1,000 Ml) 10 unit in 1,000 mls @ 12 mls/hr IV TITRATE YANIV; Protocol Oxytocin/Lactated Ringer's (Pitocin In Lr 10 Units/1,000 Ml) 10 unit in 1,000 mls @ 500 mls/hr IV .CONTINUOUS YANIV Vancomycin HCl 1 gm/ Sodium (Chloride) 250 mls @ 250 mls/hr IV Q12H YANIV Last Admin: 07/09/18 00:15 Dose: 250 mls/hr Sodium Chloride (Saline Flush) 10 ml FLUSH ASDIRECTED PRN PRN Reason: Keep Vein Open <Gurjit Hurst F - Last Filed: 07/09/18 16:18> L&D History of Present Illness - General Date of Service: 07/09/18 Admit Problem/Dx: Patient Status Order with Admit Dx/Problem 07/08/18 23:19 Patient Status [ADT] Routine Admission Diagnosis/Problem Admission Diagnosis/Problem - History of Present Illness Introduction:: -The patient had spontaneous rupture membranes at 2130 hrs. on 07/08/2018. Anticipate Normal labor and . -Vancomycin for group B strep prophylaxis as patient is allergic to penicillin with anaphylactic reaction and group B strep bacteria is resistant to clindamycin H&P Review of Systems - Review of Systems: Review Of Systems: See Below L&D Exam - Exam Exam: See Below - Vital Signs Vital Signs: Last Vital Signs Temp 36.8 C 07/08/18 23:09 Pulse 98 07/08/18 23:09 Resp 20 07/08/18 23:09 BP 130/87 07/08/18 23:09 Pulse Ox 99 07/08/18 23:09 - Patient Data Lab Results Last 24 hrs: Laboratory Results - last 24 hr 07/08/18 07/08/18 Range/Units 23:30 23:30 WBC 13.91 H (3.98-10.04) K/mm3 RBC 4.39 (3.98-5.22) M/mm3 Hgb 10.5 L (11.2-15.7) gm/L Hct 32.4 L (34.1-44.9) % MCV 73.8 L (79.4-94.8) fl MCH 23.9 L (25.6-32.2) pg MCHC 32.4 (32.2-35.5) g/dl RDW Std Deviation 41.3 (36.4-46.3) fL Plt Count 223 (182-369) K/mm3 MPV 11.5 (9.4-12.3) fl Neut % (Auto) 66.9 (34.0-71.1) % Lymph % (Auto) 18.3 L (19.3-51.7) % [place] % (Auto) 11.0 (4.7-12.5) % Eos % (Auto) 2.9 (0.7-5.8) Baso % (Auto) 0.2 (0.1-1.2) % Neut # (Auto) 9.30 H (1.56-6.13) K/mm3 Lymph # (Auto) 2.55 (1.18-3.74) K/mm3 [place] # (Auto) 1.53 H (0.24-0.36) K/mm3 Eos # (Auto) 0.40 H (0.04-0.36) K/mm3 Baso # (Auto) 0.03 (0.01-0.08) K/mm3 Manual Slide Review Abnormal smear RPR Non-reactive (NONREACTIVE) Result Diagrams: 07/08/18 23:30 Problem List Initiated/Reviewed/Updated: Yes Orders Last 24hrs: Active Orders 24 hr Category Date Time Status Patient Status [ADT] Routine ADT 07/08/18 23:19 Active Activity as Tolerated [RC] PFP Care 07/08/18 23:19 Active Communication Order [RC] ASDIRECTED Care 07/08/18 23:19 Active Heart Tones [RC] ASDIRECTED Care 07/08/18 23:19 Active Notify Provider [RC] PFP Care 07/08/18 23:19 Active Notify Provider [RC] PRN Care 07/08/18 23:19 Active Peripheral IV Care [RC] . DIRECTED Care 07/08/18 23:20 Active Vital Signs [RC] PER UNIT ROUTINE Care 07/08/18 23:19 Active Regular Diet [DIET] Diet 07/09/18 Breakfast Active Lactated Ringers [Ringers, Lactated] 1,000 ml Med 07/08/18 23:30 Active IV ASDIRECTED Nalbuphine [Nubain] Med 07/09/18 10:00 Active 10 mg IVPUSH Q2H PRN Oxytocin/Lactated Ringers [Pitocin in LR 10 Units/1,000 Med 07/08/18 23:30 Active ML] 10 unit in 1,000 ml IV .CONTINUOUS Oxytocin/Lactated Ringers [Pitocin in LR 10 Units/1,000 Med 07/08/18 23:30 Active ML] 10 unit in 1,000 ml IV TITRATE Sodium Chloride 0.9% [Saline Flush] Med 07/08/18 23:18 Active 10 ml FLUSH ASDIRECTED PRN Vancomycin [Vancocin] 1 gm Med 07/08/18 23:30 Active Sodium Chloride 0.9% [Normal Saline] 250 ml IV Q12H diphenhydrAMINE [Benadryl] Med 07/09/18 10:03 Active 25 mg IVPUSH Q6H PRN Electronic Heart Tones Ext w TOCO [WOMSER] Oth 07/08/18 23:19 Ordered Routine Electronic Heart Tones Internal [WOMSER] Per Unit Oth 07/08/18 23:19 Ordered Routine Peripheral IV Insertion Adult [OM.PC] Routine Oth 07/08/18 23:19 Ordered Resuscitation Status Routine Resus Stat 07/08/18 23:18 Ordered Medication Orders Diphenhydramine HCl (Benadryl) 25 mg IVPUSH Q6H PRN PRN Reason: Itching Last Admin: 07/09/18 10:08 Dose: 25 mg Lactated Ringer's (Ringers, Lactated) 1,000 mls @ 100 mls/hr IV ASDIRECTED YANIV Last Admin: 07/09/18 14:32 Dose: 100 mls/hr Infusion: 07/09/18 14:32 Dose: 100 mls/hr Admin: 07/09/18 11:32 Dose: 100 mls/hr Infusion: 07/09/18 10:14 Dose: 100 mls/hr Admin: 07/09/18 00:14 Dose: 100 mls/hr Oxytocin/Lactated Ringer's (Pitocin In Lr 10 Units/1,000 Ml) 10 unit in 1,000 mls @ 12 mls/hr IV TITRATE YANIV; Protocol Last Titration: 07/09/18 16:06 Dose: 10 munits/min, 60 mls/hr Titration: 07/09/18 15:36 Dose: 8 munits/min, 48 mls/hr Titration: 07/09/18 13:46 Dose: 4 munits/min, 24 mls/hr Admin: 07/09/18 13:34 Dose: 2 munits/min, 12 mls/hr Oxytocin/Lactated Ringer's (Pitocin In Lr 10 Units/1,000 Ml) 10 unit in 1,000 mls @ 500 mls/hr IV .CONTINUOUS YANIV Vancomycin HCl 1 gm/ Sodium (Chloride) 250 mls @ 250 mls/hr IV Q12H YANIV Last Admin: 07/09/18 11:26 Dose: 250 mls/hr Infusion: 07/09/18 01:15 Dose: 250 mls/hr Admin: 07/09/18 00:15 Dose: 250 mls/hr Nalbuphine HCl (Nubain) 10 mg IVPUSH Q2H PRN PRN Reason: Pain Last Admin: 07/09/18 10:10 Dose: 10 mg Sodium Chloride (Saline Flush) 10 ml FLUSH ASDIRECTED PRN PRN Reason: Keep Vein Open
[2018-07-09] MEDS ORDERED: Nalbuphine 20 MG/ML 1 ML Syringe IVPUSH PRN (10:00)
[2018-07-09] MEDS ORDERED: diphenhydrAMINE 50 MG/ML SDV IVPUSH PRN (10:03)
[2018-07-09] MEDS ORDERED: diphenhydrAMINE 50 MG/ML SDV ONE (10:05)
[2018-07-09] MEDS ORDERED: Sodium Chloride 0.9% 1,000 ML IV ONE (13:52)
[2018-07-09] MEDS ORDERED: Sodium Chloride 0.9% 1,000 ML ONE (13:54)
--- NOTE | 2018-07-09 20:20 | PCM.SN ---
- Free Text/Narrative Note: Delivery note: Kalie is a 28-year-old 1 now para 1001 white female who was admitted during the course of the night of 07/08/2018 with spontaneous rupture membranes. She start slowly into labor. She was augmented with Pitocin during the course of her labor. She is unable to have an epidural because of previous back surgery 4 and history of scoliosis and hardware in her lower back. She progressed to complete cervical dilation by approximately 1730 hrs. on 2018. She pushed for approximately 2 hours and brought the baby's head down but became fatigued after that. She was offered options of continued pushing, vacuum extraction attempt or C- section and patient opted for the vacuum extraction. The procedure, risks, benefits, limitations and follow-up were discussed with patient. She appeared to understand verbally consented. With vacuum extraction patient delivered a viable, mathis, female with Apgars of 7 and 9, weight of 3820 g (8 pounds 6.7 ounces) at 1935 hrs. on 07/09/2018. The baby was placed on mom's abdomen. Cord was clamped 2 and cut by the baby's father. IV Pitocin was started per protocol to increase uterine tone and decrease likelihood of bleeding. Patient continued to bleed somewhat and Methergine 0.2 mg IM was given to facilitate uterine contraction. With this the bleeding slowed significantly. Placenta delivered in a Ann presentation, clear intact and complete and was discarded per patient desire. Vocal cord had 3 vessels. Cord blood was obtained. Patient is noted to have a second-degree perineal laceration and a very long left vaginal sulcus laceration. The left lateral sulcus laceration was repaired with running lock suture of 3-0 Monocryl. The perineal laceration was closed in a routine repair with 3-0 Monocryl. Lidocaine 1% was used20 mL total for the repair. Patient tolerated this well. Estimated blood loss was approximately 500 mL. She plans to breast-feed. Condition: Good
[2018-07-09] MEDS ORDERED: Lanolin 100% Cream 7 GM Tube TOP PRN (20:40)
[2018-07-09] MEDS ORDERED: Witch Hazel Medicated Pads 100/Jar TOP PRN (20:40)
[2018-07-09] MEDS ORDERED: Acetaminophen 325 MG Tab PO PRN (20:40)
[2018-07-09] MEDS ORDERED: Docusate Sodium 100 MG Cap PO PRN (20:40)
[2018-07-09] MEDS ORDERED: Benzocaine/Menthol 20%-0.5% Spray 56 GM Canister TOP PRN (20:40)
[2018-07-09] MEDS: Ibuprofen 600 MG Tab PO PRN (21:33)
[2018-07-09] MEDS: Lidocaine 1% 50 ML MDV ONE (21:36)
[2018-07-10] MEDS ORDERED: Methylergonovine 0.2 MG/1 ML Amp IM PRN (01:18)
[2018-07-10] MEDS ORDERED: Lidocaine 1% 20 ML MDV INJECT ONE (01:30)
[2018-07-10] MEDS: Lidocaine 1% 50 ML MDV ONE (01:33)
[2018-07-10] MEDS: Prenatal Multivitamin with Calcium/Folic Acid/Iron Tab PO SCH (08:11)
--- NOTE | 2018-07-10 08:44 | PCM.SN ---
- Free Text/Narrative Note: note: Patient is doing well in the period. Minimal lochia, voiding well, ambulated without problems. Nursing without concerns. Patient is afebrile, vital signs are stable Abdomen is flat, soft, uterus is below the umbilicus and is firm and nontender. Legs are nontender. CBC pending at this time. Assessment: recovery going well. Plan: Routine care. Patient be discharged home within the next 24- 48 hours.
[2018-07-10] MEDS ORDERED: diphenhydrAMINE 25 MG Cap PO PRN (21:41)
[2018-07-10] MEDS ORDERED: Sodium Chloride 0.9% 250 ML IV SCH (21:45)
--- NOTE | 2018-07-10 21:56 | PCM.SN ---
- Free Text/Narrative Note: S: Patient reports that she has been having increased amounts of fatigue throughout the day. She has also been having increased shortness of breath with ambulation. Her pain has been well controlled with oral medications. She has continued to have small to moderate amount of lochia. She states that the amount of lochia has been decreasing throughout the day. O: Vital Signs - 8 hr 07/10/18 07/10/18 15:08 20:01 Temperature 36.7 C 36.6 C Pulse, 109 H 105 H Peripheral Respiratory 14 15 Rate Blood Pressure 108/87 116/54 L O2 Sat by Pulse 94 L 97 Oximetry Physical exam General: NAD, alert and oriented Lungs: Unlabored breathing Abdomen: Soft, NT, ND, fundus at umbilicus Pelvis: Small amount of bleeding on mart-pad, no active bleeding Extremities: Trace edema in bilateral lower extremities Laboratory Results - last 24 hr 07/10/18 07/10/18 Range/Units 19:45 19:55 WBC 18.86 H (3.98-10.04) K/mm3 RBC 2.73 L (3.98-5.22) M/mm3 Hgb 6.5 L* (11.2-15.7) gm/L Hct 20.7 L (34.1-44.9) % MCV 75.8 L (79.4-94.8) fl MCH 23.8 L (25.6-32.2) pg MCHC 31.4 L (32.2-35.5) g/dl RDW Std Deviation 41.2 (36.4-46.3) fL Plt Count 208 (182-369) K/mm3 MPV 11.2 (9.4-12.3) fl Blood Type Cancelled Gel Antibody Screen Cancelled A/P 28 year old s/p VAVD with significant sulcal lacerations complicated by acute blood loss anemia * Patient with hemoglobin of 6.5 and tachycardia in addition to syncopal symptoms, fatigue and shortness of breath. Discussed with patient that given her hemoglobin of 6.5 that I would recommend for blood transfusion. Discussed the risks and benefits of blood transfusion and patient desires to proceed with transfusion. Blood transfusion consent form signed. IV to be restarted and 1 unit pRBCs ordered for patient. Patient to be given pre-treatment with Tylenol. Patient may receive Benadryl 25-50 mg as needed for itching with transfusion. Recheck CBC at least 6 hours after completion of transfusion. Konstantin Browning MD 10:07 PM 07/10/2018
[2018-07-11] MEDS: Prenatal Multivitamin with Calcium/Folic Acid/Iron Tab PO SCH (09:09)
--- NOTE | 2018-07-11 10:51 | PCM.SN ---
- Free Text/Narrative Note: Post Progress Note PPD # 2 Subjective: Doing well overall. Reports feeling much improved after her blood transfusion. Denies any difficulty with ambulation. Denies any lightheadedness or dizziness with standing. Denies any shortness of breath with ambulation. Reports that she does have some mild fatigue but it is improved from where she was at yesterday. Lochia minimal. Voiding without difficulty. Tolerating regular diet without nausea or vomiting. Pain controlled with oral medications. Pumping with formula supplementation with minimal difficulty. Objective: Vitals: Vital Signs - 24 hr 07/10/18 07/10/18 07/10/18 15:08 20:01 22:41 Temperature 36.7 C 36.6 C 36.9 C Pulse, 109 H 105 H Peripheral Pulse, Peripheral [ Pulse Oximetry] Respiratory 14 15 Rate Blood Pressure 108/87 116/54 L Blood Pressure [Upper Arm] O2 Sat by Pulse 94 L 97 Oximetry 07/10/18 07/10/18 07/10/18 22:43 23:08 23:23 Temperature 36.9 C 36.6 C 36.9 C Pulse, Peripheral Pulse, 100 99 92 Peripheral [ Pulse Oximetry] Respiratory 16 16 18 Rate Blood Pressure Blood Pressure 117/62 104/67 111/55 L [Upper Arm] O2 Sat by Pulse Oximetry 07/11/18 07/11/18 07/11/18 00:48 04:57 08:33 Temperature 36.9 C 36.5 C 36.5 C Pulse, 92 86 84 Peripheral Pulse, Peripheral [ Pulse Oximetry] Respiratory 18 16 Rate Blood Pressure 111/55 L 118/67 129/81 Blood Pressure [Upper Arm] O2 Sat by Pulse 97 98 98 Oximetry Physical Exam General: Alert and oriented, no acute distress Lungs: Clear to auscultation bilaterally Heart: Regular rate and rhythm Abdomen: Soft, minimal appropriate tenderness, non-distended, fundus midline, nontender, and at the umbilicus Extremities: 1+ edema in bilateral lower extremities to knees Laboratory Results - last 24 hr 07/10/18 07/10/18 07/10/18 Range/Units 19:45 19:45 19:55 WBC 18.86 H (3.98-10.04) K/mm3 RBC 2.73 L (3.98-5.22) M/mm3 Hgb 6.5 L* (11.2-15.7) gm/L Hct 20.7 L (34.1-44.9) % MCV 75.8 L (79.4-94.8) fl MCH 23.8 L (25.6-32.2) pg MCHC 31.4 L (32.2-35.5) g/dl RDW Std Deviation 41.2 (36.4-46.3) fL Plt Count 208 (182-369) K/mm3 MPV 11.2 (9.4-12.3) fl Neut % (Auto) (34.0-71.1) % Lymph % (Auto) (19.3-51.7) % [place] % (Auto) (4.7-12.5) % Eos % (Auto) (0.7-5.8) Baso % (Auto) (0.1-1.2) % Neut # (Auto) (1.56-6.13) K/mm3 Lymph # (Auto) (1.18-3.74) K/mm3 [place] # (Auto) (0.24-0.36) K/mm3 Eos # (Auto) (0.04-0.36) K/mm3 Baso # (Auto) (0.01-0.08) K/mm3 Manual Slide Review Blood Type Cancelled O POSITIVE Gel Antibody Screen Cancelled Negative Crossmatch See Detail 07/11/18 Range/Units 06:27 WBC 14.90 H (3.98-10.04) K/mm3 RBC 3.11 L (3.98-5.22) M/mm3 Hgb 7.5 L (11.2-15.7) gm/L Hct 24.0 L (34.1-44.9) % MCV 77.2 L (79.4-94.8) fl MCH 24.1 L (25.6-32.2) pg MCHC 31.3 L (32.2-35.5) g/dl RDW Std Deviation 42.7 (36.4-46.3) fL Plt Count 205 (182-369) K/mm3 MPV 10.9 (9.4-12.3) fl Neut % (Auto) 69.9 (34.0-71.1) % Lymph % (Auto) 17.9 L (19.3-51.7) % [place] % (Auto) 8.9 (4.7-12.5) % Eos % (Auto) 1.5 (0.7-5.8) Baso % (Auto) 0.2 (0.1-1.2) % Neut # (Auto) 10.41 H (1.56-6.13) K/mm3 Lymph # (Auto) 2.66 (1.18-3.74) K/mm3 [place] # (Auto) 1.33 H (0.24-0.36) K/mm3 Eos # (Auto) 0.23 (0.04-0.36) K/mm3 Baso # (Auto) 0.03 (0.01-0.08) K/mm3 Manual Slide Review Abnormal smear Blood Type Gel Antibody Screen Crossmatch ASSESSMENT: 28-year-old female 0-1 s/p vacuum-assisted vaginal delivery with significant sulcal lacerations PPD #2, complicated by acute blood loss anemia with hemoglobin of 6.5 and received 1 unit PRBCs blood transfusion. , complicated by asthma, GBS positive and multiple back surgeries PLAN: Doing well Hemoglobin this morning after blood transfusion came back at 7.5. Patient has had resolution of her acute blood loss anemia symptoms at this time. Tachycardia has improved and has a normal heart rate at this time. Continue to monitor for any signs of acute blood loss anemia. Pumping breast milk with formula supplementation with minimal difficulty. Assist as needed Lochia minimal. Continue to monitor for appropriate lochia. Continue routine care Discharge home today Konstantin Browning MD 11:19 AM 07/11/2018
--- NOTE | 2018-07-11 10:51 | PCM.DCSUM1 ---
Discharge Summary - Hospital Course Free Text/Narrative:: Delivery note: Kalie is a 28-year-old 1 now para 1001 white female who was admitted during the course of the night of 07/08/2018 with spontaneous rupture membranes. She start slowly into labor. She was augmented with Pitocin during the course of her labor. She is unable to have an epidural because of previous back surgery 4 and history of scoliosis and hardware in her lower back. She progressed to complete cervical dilation by approximately 1730 hrs. on 2018. She pushed for approximately 2 hours and brought the baby's head down but became fatigued after that. She was offered options of continued pushing, vacuum extraction attempt or C- section and patient opted for the vacuum extraction. The procedure, risks, benefits, limitations and follow-up were discussed with patient. She appeared to understand verbally consented. With vacuum extraction patient delivered a viable, mathis, female infant with Apgars of 7 and 9, weight of 3820 g (8 pounds 6.7 ounces) at 1935 hrs. on 07/09/2018. The baby was placed on mom's abdomen. Cord was clamped 2 and cut by the baby's father. IV Pitocin was started per protocol to increase uterine tone and decrease likelihood of bleeding. Patient continued to bleed somewhat and Methergine 0.2 mg IM was given to facilitate uterine contraction. With this the bleeding slowed significantly. Placenta delivered in a Ann presentation, clear intact and complete and was discarded per patient desire. Vocal cord had 3 vessels. Cord blood was obtained. Patient is noted to have a second-degree perineal laceration and a very long left vaginal sulcus laceration. The left lateral sulcus laceration was repaired with running lock suture of 3-0 Monocryl. The perineal laceration was closed in a routine repair with 3-0 Monocryl. Lidocaine 1% was used20 mL total for the repair. Patient tolerated this well. Estimated blood loss was approximately 500 mL. She plans to breast-feed. Condition: Good HPI Initial Comments: Delivery note: Kalie is a 28-year-old 1 now para 1001 white female who was admitted during the course of the night of 07/08/2018 with spontaneous rupture membranes. She start slowly into labor. She was augmented with Pitocin during the course of her labor. She is unable to have an epidural because of previous back surgery 4 and history of scoliosis and hardware in her lower back. She progressed to complete cervical dilation by approximately 1730 hrs. on 2018. She pushed for approximately 2 hours and brought the baby's head down but became fatigued after that. She was offered options of continued pushing, vacuum extraction attempt or C- section and patient opted for the vacuum extraction. The procedure, risks, benefits, limitations and follow-up were discussed with patient. She appeared to understand verbally consented. With vacuum extraction patient delivered a viable, mathis, female with Apgars of 7 and 9, weight of 3820 g (8 pounds 6.7 ounces) at 1935 hrs. on 07/09/2018. The baby was placed on mom's abdomen. Cord was clamped 2 and cut by the baby's father. IV Pitocin was started per protocol to increase uterine tone and decrease likelihood of bleeding. Patient continued to bleed somewhat and Methergine 0.2 mg IM was given to facilitate uterine contraction. With this the bleeding slowed significantly. Placenta delivered in a Ann presentation, clear intact and complete and was discarded per patient desire. Vocal cord had 3 vessels. Cord blood was obtained. Patient is noted to have a second-degree perineal laceration and a very long left vaginal sulcus laceration. The left lateral sulcus laceration was repaired with running lock suture of 3-0 Monocryl. The perineal laceration was closed in a routine repair with 3-0 Monocryl. Lidocaine 1% was used20 mL total for the repair. Patient tolerated this well. Estimated blood loss was approximately 500 mL. She plans to breast-feed. Condition: Good Brief History: Delivery note: Kalie is a 28-year-old 1 now para 1001 white female who was admitted during the course of the night of 07/08/2018 with spontaneous rupture membranes. She start slowly into labor. She was augmented with Pitocin during the course of her labor. She is unable to have an epidural because of previous back surgery 4 and history of scoliosis and hardware in her lower back. She progressed to complete cervical dilation by approximately 1730 hrs. on 07/01/2018. She pushed for approximately 2 hours and brought the baby's head down but became fatigued after that. She was offered options of continued pushing, vacuum extraction attempt or and patient opted for the vacuum extraction. The procedure, risks, benefits, limitations and follow- up were discussed with patient. She appeared to understand verbally consented. With vacuum extraction patient delivered a viable, mathis, female with Apgars of 7 and 9, weight of 3820 g (8 pounds 6.7 ounces) at 1935 hrs. on . The baby was placed on mom's abdomen. Cord was clamped 2 and cut by the baby's father. IV Pitocin was started per protocol to increase uterine tone and decrease likelihood of bleeding. Patient continued to bleed somewhat and Methergine 0.2 mg IM was given to facilitate uterine contraction. With this the bleeding slowed significantly. Placenta delivered in a Ann presentation, clear intact and complete and was discarded per patient desire. Vocal cord had 3 vessels. Cord blood was obtained. Patient is noted to have a second-degree perineal laceration and a very long left vaginal sulcus laceration. The left lateral sulcus laceration was repaired with running lock suture of 3-0 Monocryl. The perineal laceration was closed in a routine repair with 3-0 Monocryl. Lidocaine 1% was used20 mL total for the repair. Patient tolerated this well. Estimated blood loss was approximately 500 mL. She plans to breast- feed. Condition: Good Diagnosis: Stroke: No - Discharge Data Discharge Date: 07/11/18 Discharge Disposition: Home, Self-Care 01 Condition: Good - Discharge Diagnosis/Problem(s) (1) 38 weeks gestation of SNOMED Code(s): 49081479 ICD Code: Z3A.38 - 38 WEEKS GESTATION OF Status: Acute Current Visit: Yes (2) GBS (group B Streptococcus carrier), +RV culture, currently SNOMED Code(s): 7574205060067, 005977345, 4429390215958 ICD Code: O99.820 - STREPTOCOCCUS B CARRIER STATE COMPLICATING Status: Acute Current Visit: Yes (3) Vaginal delivery SNOMED Code(s): 631327488 ICD Code: O80 - ENCOUNTER FOR FULL-TERM UNCOMPLICATED DELIVERY Status: Acute Current Visit: Yes (4) Vacuum extraction, delivered, current hospitalization SNOMED Code(s): 429540125 ICD Code: O66.5 - ATTEMPTED APPLICATION OF VACUUM EXTRACTOR AND FORCEPS Status: Acute Current Visit: Yes (5) Second degree perineal laceration during delivery SNOMED Code(s): 4367865 ICD Code: O70.1 - SECOND DEGREE PERINEAL LACERATION DURING DELIVERY Status : Acute Current Visit: Yes (6) Acute blood loss anemia SNOMED Code(s): 968996976 ICD Code: D62 - ACUTE POSTHEMORRHAGIC ANEMIA Status: Acute Current Visit : Yes (7) Asthma SNOMED Code(s): 430380188 ICD Code: J45.909 - UNSPECIFIED ASTHMA, UNCOMPLICATED Status: Acute Current Visit: No (8) Penicillin allergy SNOMED Code(s): 39701661 ICD Code: Z88.0 - ALLERGY STATUS TO PENICILLIN Status: Acute Current Visit: No - Patient Summary/Data Complications: Acute blood loss anemia with hemoglobin of 6.5 and patient symptomatic with tachycardia. Received 1 unit PRBCs on day #1. Consults: None Hospital Course: Kalie Martinez was admitted for spontaneous rupture membranes with clear fluid. She was GBS positive and was started on vancomycin and received one total dose prior to delivery. She was given pitocin for augmentation. She progressed to complete and began pushing. She was pushing for approximately 2 hours before becoming fatigued. She was offered vacuum extraction versus and desired to have a vacuum extraction delivery. On 07/09/2018 she had a vacuum assisted vaginal delivery of a live female at 1935. Apgars of 7 and 9. Weight of 3820 g (8 pounds 6.7 ounces). Her delivery was complicated by a long second-degree left vaginal sulcal laceration. Her EBL was 500 mL. Her course was complicated by acute blood loss anemia symptoms with lightheadedness, dizziness, fatigue and shortness of breath on day # 1. In the evening of day #1 her hemoglobin came back at 6.5. She was also having tachycardia with normal blood pressure. Discussion was had with patient regarding recommendation for blood transfusion. Patient accepted blood transfusion received 1 unit of PRBCs. In the morning of day # 2 after her blood transfusion she reports that she is doing very well and is not having any more of her symptoms that she was prior to blood transfusion. Her tachycardia improved. Her pain was well controlled and she had minimal lochia. She was ambulating, tolerating a regular diet and voiding normally. She was pumping with formula supplementation with minimal difficulty. She was afebrile and her hemoglobin was 7.5 on day #2 after receiving 1 unit PRBCs. She desired to be discharged home on the morning of PPD #2. Her blood type is O+. - Patient Instructions Diet: Regular Diet as Tolerated Activity: Apply Ice, As Tolerated Activity, Other: Nothing in the vagina for 6 weeks Driving: May Drive Today Showering/Bathing: May Shower Notify Provider of: Fever, Increased Pain, Swelling and Redness, Drainage, Nausea and/or Vomiting Other/Special Instructions: Please contact your physician's office if you have heavy vaginal bleeding enough to soak a pad in less than an hour for several hours. Monitor for any signs of anemia or low iron count with lightheadedness, dizziness, shortness of breath or chest pain. You want to take things easy at home and avoid any activities that would put her at high risk for injury due to the low blood count that she had while you're in the hospital. Your body will slowly replace over several weeks all of the blood cells until it gets back to a normal level. Monitor for any signs of an infection in the breasts with severe pain or redness of the breast. - Discharge Plan *PRESCRIPTION DRUG MONITORING PROGRAM REVIEWED*: Not Applicable *COPY OF PRESCRIPTION DRUG MONITORING REPORT IN PATIENT JUNIOR: Not Applicable Home Medications: Home Meds Albuterol [Proair HFA] 2 puff INH Q6H PRN 06/25/17 [History] Formoterol/Mometasone [Dulera 100 MCG/5 MCG] 2 puff INH DAILY PRN 06/25/17 [ History] Oxycodone. 1 tab PO Q6H 06/25/17 [History] Acetaminophen [Tylenol] 650 mg PO Q6H PRN tablet 07/11/18 [Rx] Benzocaine/Menthol [Dermoplast Pain Relief Dermott] 1 spray TOP ASDIRECTED PRN canister 07/11/18 [Rx] Docusate Sodium [Colace] 100 mg PO BID PRN cap 07/11/18 [Rx] Ibuprofen [Motrin] 600 mg PO Q6H PRN tablet 07/11/18 [Rx] Lanolin [Lansinoh HPA] 1 applic TOP ASDIRECTED PRN tube 07/11/18 [Rx] Vit with Ca/FA/Iron [ Plus Iron] 1 each PO DAILY tablet [Rx] Constance Cole [Tucks] 1 pad TOP ASDIRECTED PRN pad 07/11/18 [Rx] Patient Handouts: Care of a Perineal Tear, Care After Vaginal Delivery, Blood Transfusion, Adult, Care After Referrals: Gurjit Hurst MD [Primary Care Provider] - (Follow-up in 2 weeks for regular routine visit or earlier as needed.) - Discharge Summary/Plan Comment DC Time >30 min.: No - Patient Data Vitals - Most Recent: Last Vital Signs Temp 36.5 C 07/11/18 08:33 Pulse 84 07/11/18 08:33 Resp 16 07/11/18 04:57 BP 129/81 07/11/18 08:33 Pulse Ox 98 07/11/18 08:33 Weight - Most Recent: 100.834 kg I&O - Last 24 hours: Intake & Output 07/10/18 07/11/18 07/11/18 22:59 06:59 14:59 Intake Total 0 360 Balance 0 360 Lab Results - Last 24 hrs: Laboratory Results - last 24 hr 07/10/18 07/10/18 07/10/18 Range/Units 19:45 19:45 19:55 WBC 18.86 H (3.98-10.04) K/mm3 RBC 2.73 L (3.98-5.22) M/mm3 Hgb 6.5 L* (11.2-15.7) gm/L Hct 20.7 L (34.1-44.9) % MCV 75.8 L (79.4-94.8) fl MCH 23.8 L (25.6-32.2) pg MCHC 31.4 L (32.2-35.5) g/dl RDW Std Deviation 41.2 (36.4-46.3) fL Plt Count 208 (182-369) K/mm3 MPV 11.2 (9.4-12.3) fl Neut % (Auto) (34.0-71.1) % Lymph % (Auto) (19.3-51.7) % Cannon % (Auto) (4.7-12.5) % Eos % (Auto) (0.7-5.8) Baso % (Auto) (0.1-1.2) % Neut # (Auto) (1.56-6.13) K/mm3 Lymph # (Auto) (1.18-3.74) K/mm3 Cannon # (Auto) (0.24-0.36) K/mm3 Eos # (Auto) (0.04-0.36) K/mm3 Baso # (Auto) (0.01-0.08) K/mm3 Manual Slide Review Blood Type Cancelled O POSITIVE Gel Antibody Screen Cancelled Negative Crossmatch See Detail 07/11/18 Range/Units 06:27 WBC 14.90 H (3.98-10.04) K/mm3 RBC 3.11 L (3.98-5.22) M/mm3 Hgb 7.5 L (11.2-15.7) gm/L Hct 24.0 L (34.1-44.9) % MCV 77.2 L (79.4-94.8) fl MCH 24.1 L (25.6-32.2) pg MCHC 31.3 L (32.2-35.5) g/dl RDW Std Deviation 42.7 (36.4-46.3) fL Plt Count 205 (182-369) K/mm3 MPV 10.9 (9.4-12.3) fl Neut % (Auto) 69.9 (34.0-71.1) % Lymph % (Auto) 17.9 L (19.3-51.7) % Cannon % (Auto) 8.9 (4.7-12.5) % Eos % (Auto) 1.5 (0.7-5.8) Baso % (Auto) 0.2 (0.1-1.2) % Neut # (Auto) 10.41 H (1.56-6.13) K/mm3 Lymph # (Auto) 2.66 (1.18-3.74) K/mm3 Cannon # (Auto) 1.33 H (0.24-0.36) K/mm3 Eos # (Auto) 0.23 (0.04-0.36) K/mm3 Baso # (Auto) 0.03 (0.01-0.08) K/mm3 Manual Slide Review Abnormal smear Blood Type Gel Antibody Screen Crossmatch Med Orders - Current: Current Medications Acetaminophen (Tylenol) 650 mg PO Q4H PRN PRN Reason: mild pain or fever Last Admin: 07/10/18 22:41 Dose: 650 mg Benzocaine/Menthol (Dermoplast Pain Relief Dermott) 0 gm TOP ASDIRECTED PRN PRN Reason: Perineal Comfort Measure Last Admin: 07/09/18 21:34 Dose: 1 canister Diphenhydramine HCl (Benadryl) 25 mg PO Q4H PRN PRN Reason: Other Docusate Sodium (Colace) 100 mg PO BID PRN PRN Reason: Constipation Emollient Ointment (Lansinoh Hpa) 0 gm TOP ASDIRECTED PRN PRN Reason: Sore Nipples Last Admin: 07/10/18 08:11 Dose: 1 applic Sodium Chloride (Normal Saline) 250 mls @ 100 mls/hr IV ASDIRECTED [facility] Last Admin: 07/10/18 22:59 Dose: 100 mls/hr Ibuprofen (Motrin) 600 mg PO Q4H PRN PRN Reason: Mild pain or fever Last Admin: 07/09/18 21:33 Dose: 600 mg Methylergonovine Maleate (Methergine) 0.2 mg IM Q4H PRN PRN Reason: Bleeding Last Admin: 07/10/18 01:29 Dose: 0.2 mg Prenat Multivit/Rhododendron/Iron/Folic Ac ( Plus Iron) 1 each PO DAILY [facility] Last Admin: 07/11/18 09:09 Dose: 1 each Witch Kelsey (Tucks) 1 pad TOP ASDIRECTED PRN PRN Reason: Hemorrhoid pain Last Admin: 07/09/18 21:34 Dose: 1 tub Discontinued Medications Diphenhydramine HCl (Benadryl) 25 mg IVPUSH Q6H PRN PRN Reason: Itching Last Admin: 07/09/18 10:08 Dose: 25 mg Diphenhydramine HCl (Benadryl) Confirm Administered Dose 50 mg .ROUTE .STK-MED ONE Stop: 07/09/18 10:06 Last Admin: 07/10/18 01:33 Dose: Not Given Lactated Ringer's (Ringers, Lactated) 1,000 mls @ 100 mls/hr IV ASDIRECTED YANIV Last Admin: 07/09/18 14:32 Dose: 100 mls/hr Oxytocin/Lactated Ringer's (Pitocin In Lr 10 Units/1,000 Ml) 10 unit in 1,000 mls @ 12 mls/hr IV TITRATE YANIV; Protocol Last Titration: 07/09/18 19:35 Dose: 500 mls/hr Oxytocin/Lactated Ringer's (Pitocin In Lr 10 Units/1,000 Ml) 10 unit in 1,000 mls @ 500 mls/hr IV .CONTINUOUS YANIV Vancomycin HCl 1 gm/ Sodium (Chloride) 250 mls @ 250 mls/hr IV Q12H YANIV Last Admin: 07/09/18 11:26 Dose: 250 mls/hr Sodium Chloride (Normal Saline) 1,000 mls @ 999 mls/hr IV ONETIME ONE Stop: 07/09/18 14:52 Last Admin: 07/09/18 13:56 Dose: 999 mls/hr Sodium Chloride (Normal Saline) Confirm Administered Dose 1,000 mls @ as directed .ROUTE .STK-MED ONE Stop: 07/09/18 13:55 Last Admin: 07/10/18 01:33 Dose: Not Given Lidocaine HCl (Xylocaine 1%) Confirm Administered Dose 50 ml .ROUTE .STK-MED ONE Stop: 07/09/18 10:21 Last Admin: 07/10/18 01:33 Dose: Not Given Lidocaine HCl (Xylocaine 1%) 50 ml INJECT ONETIME ONE Stop: 07/10/18 01:31 Last Admin: 07/09/18 19:36 Dose: 50 ml Nalbuphine HCl (Nubain) 10 mg IVPUSH Q2H PRN PRN Reason: Pain Last Admin: 07/09/18 10:10 Dose: 10 mg Sodium Chloride (Saline Flush) 10 ml FLUSH ASDIRECTED PRN PRN Reason: Keep Vein Open
[2018-07-11] MEDS: Ibuprofen 600 MG Tab PO PRN (10:52)
== END 2018-07-11 13:15 | disposition home or self-care (01) | DRG 560 ==
LOC: JD.OBCHECK 22:53 → JD.OB 22:53 → JD.OBCHECK 23:18 → JD.OB 23:19 → UNDOADMOB 23:19 → INTOOBSV 07-09 19:35 → OBSVTOIN 07-09 19:35 → JD.OB 07-09 19:36 → OBSVTOIN 07-09 19:36 → JD.OB 07-09 19:36
PROVIDERS: ADMIT Obstetrics & Gynecology; ATTEND Obstetrics & Gynecology
PROC: 6A550ZT Pheresis of Cord Blood Stem Cells, Single (ICD-10-PCS; principal; 2018-07-09)
PROC: 10D07Z6 Extraction of Products of Conception, Vacuum, Via Natural or Artificial Opening (ICD-10-PCS; principal; 2018-07-09)
PROC: 0KQM0ZZ Repair Perineum Muscle, Open Approach (ICD-10-PCS; principal; 2018-07-09)
PROC: 30233N1 Transfusion of Nonautologous Red Blood Cells into Peripheral Vein, Percutaneous Approach (ICD-10-PCS; 2018-07-10)
DX: O99.824 Streptococcus B carrier state complicating childbirth (principal); O90.81 Anemia of the puerperium; D62 Acute posthemorrhagic anemia; O75.81 Maternal exhaustion complicating labor and delivery; O70.1 Second degree perineal laceration during delivery; Z37.0 Single live birth; Z3A.38 38 weeks gestation of pregnancy; Z88.0 Allergy status to penicillin; O99.52 Diseases of the respiratory system complicating childbirth; J45.909 Unspecified asthma, uncomplicated; Z88.1 Allergy status to other antibiotic agents; Z88.5 Allergy status to narcotic agent; Z88.8 Allergy status to other drugs, medicaments and biological substances
CPT/HCPCS: 36415; 36430; 51701; 59025; 59409; 85025; 85027; 86592; 86850; 86900; 86901; 86922; A9270-GY; J1200; J2001; J2210; J2300; J2590; J3370; J7040; J7050; J7120; P9016

== ENCOUNTER 2019-04-25 19:49 | Emergency (ER) | payer BC ==
[2019-04-25] MEDS ORDERED: cefTRIAXone 1 GM Vial IM ONE (20:03)
--- NOTE | 2019-04-25 20:09 | EDM.PDOC ---
ED HPI GENERAL MEDICAL PROBLEM - General Chief Complaint: ENT Problem Stated Complaint: CONGESTION COUGH VOMITING Time Seen by Provider: 04/25/19 19:56 Source of Information: Reports: Patient History Limitations: Reports: No Limitations - History of Present Illness INITIAL COMMENTS - FREE TEXT/NARRATIVE: Patient's unfortunate 29-year-old female who presents emergency Department today with complaint of cough congestion runny nose. Patient denies any fever. Patient for symptoms started 2 days ago and progressively worsened since. Patient reports that she has had some shortness of breath which has been improved by her albuterol Amina at home. No nausea no vomiting sorry by mouth food and fluids well patient reports her LMP was January 17, 2019, she is a A2 - Related Data Allergies Allergy/AdvReac Type Severity Reaction Status Date / Time amoxicillin Allergy Difficulty Verified 04/25/19 20:04 Breathing Fish Containing Products Allergy Difficulty Verified 04/25/19 20:04 Breathing hydrocodone [From Vicodin] Allergy Diarrhea Verified 04/25/19 20:04 Home Meds: Home Meds Azithromycin [Zithromax] 250 mg PO DAILY #6 tab 04/25/19 [Rx] Vits #93/Iron Fum/FA [ Formula Tablet] 1 tab PO DAILY 04/25/19 [History] predniSONE [Prednisone] 50 mg PO DAILY #5 tablet 04/25/19 [Rx] Past Medical History - Past Health History Medical/Surgical History: Denies Medical/Surgical History Other HEENT History: glasses for correction, last eye exam years ago Cardiovascular History: Reports: None (denies cardiac history) Respiratory History: Reports: Asthma, Pneumothorax (complication from one back surgery) Other Respiratory History: admits history of asthma aggitated by Summer season and cigarette smoke, currently has proair, rescue inhailer (last used December), and dulera. Gastrointestinal History: Reports: None Genitourinary History: Reports: None CITY DIRECTOR History: Reports: Spontaneous Other CITY DIRECTOR History: . history of 2 spontaneous miscarriages #1 at 7weeks#2 at 6 weeks Musculoskeletal History: Reports: Fracture Neurological History: Reports: None Psychiatric History: Reports: None Endocrine/Metabolic History: Reports: None Hematologic History: Reports: None Immunologic History: Reports: None Oncologic (Cancer) History: Reports: None Dermatologic History: Reports: None - Infectious Disease History Infectious Disease History: Reports: None - Past Surgical History HEENT Surgical History: Reports: None Other HEENT Surgeries/Procedures: wears glasses Musculoskeletal Surgical History: Reports: Other (See Below) Other Musculoskeletal Surgeries/Procedures:: Ankle surg x2, back surg x4, heal cord lengthening Social & Family History - Family History Family Medical History: Noncontributory Other Cardiac Family History: MGM- HTN PGF HTN, CT history Other Endocrine/Metabolic Family History: Mother type 1 DM since 11yo Other Oncologic Family History: PGM Colon, PGF- prostate - Caffeine Use Caffeine Use: Reports: Coffee (1-2 per week) - Living Situation & Occupation Living situation: Reports: with Significant 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) ED ROS GENERAL - Review of Systems Review Of Systems: See Below Constitutional: Denies: Fever, Chills HEENT: Reports: Rhinitis Respiratory: Reports: Shortness of Breath, Wheezing, Cough ED EXAM, GENERAL - Physical Exam Exam: See Below Exam Limited By: No Limitations General Appearance: Alert, WD/WN, Mild Distress Ears: Normal External Exam, Normal Canal, Hearing Grossly Normal, Normal TMs Throat/Mouth: Normal Inspection, Normal Lips, Normal Teeth, Normal Gums, Normal Oropharynx, Normal Voice, No Airway Compromise Head: Atraumatic, Normocephalic Respiratory/Chest: No Respiratory Distress, Wheezing (Mild scattered) Cardiovascular: Normal Peripheral Pulses, Regular Rate, Rhythm, No Edema, No Gallop, No JVD, No Murmur, No Rub GI/Abdominal: Normal Bowel Sounds, Soft, Non-Tender, No Organomegaly, No Distention, No Abnormal Bruit, No Mass Back Exam: Normal Inspection, Full Range of Motion, NT Extremities: Normal Inspection, Normal Range of Motion, Non-Tender, Normal Capillary Refill, No Pedal Edema Neurological: Alert, Oriented Skin Exam: Warm, Dry, No Rash Course - Vital Signs Last Recorded V/S: Last Vital Signs Temp 99.4 F 04/25/19 20:02 Pulse 110 H 04/25/19 20:02 Resp 16 04/25/19 20:02 BP 130/81 04/25/19 20:02 Pulse Ox 98 04/25/19 20:02 - Orders/Labs/Meds Orders: Active Orders 24 hr Category Date Time Status Heart Tones [RC] ASDIRECTED Care 04/25/19 20:03 Ordered Meds: Medications Discontinued Medications Generic Name Dose Route Start Last Admin Trade Name Mami PRN Reason Stop Dose Admin Ceftriaxone Sodium 1 gm 04/25/19 20:03 Rocephin IM 04/25/19 20:04 ONETIME ONE Departure - Departure Time of Disposition: 20:06 Disposition: Home, Self-Care 01 Condition: Good Clinical Impression: Bronchitis Asthma Qualifiers: Asthma severity: mild Asthma persistence: unspecified Asthma complication type : uncomplicated Qualified Code(s): J45.909 - Unspecified asthma, uncomplicated Sinusitis Qualifiers: Sinusitis location: unspecified location Chronicity: acute Recurrence: not specified as recurrent Qualified Code(s): J01.90 - Acute sinusitis, unspecified - Discharge Information Prescriptions: Azithromycin [Zithromax] 250 mg PO DAILY #6 tab predniSONE [Prednisone] 50 mg PO DAILY #5 tablet Referrals: PCP,None [Primary Care Provider] - Forms: ED Department Discharge, ED Return to Work/School Form Additional Instructions: Home, rest, use your inhaler every 4 hours for the next 24 hours, return as needed for worsening condition Sepsis Event Note - Focused Exam Vital Signs: Vital Signs Temp Pulse Resp BP Pulse Ox 04/25/19 20:02 99.4 F 110 H 16 130/81 98 Date Exam was Performed: 04/25/19 Time Exam was Performed: 20:09 - My Orders Last 24 Hours: My Active Orders 04/25/19 20:03 Heart Tones [RC] ASDIRECTED - Assessment/Plan Last 24 Hours: My Active Orders 04/25/19 20:03 Heart Tones [RC] ASDIRECTED
[2019-04-25] MEDS ORDERED: cefTRIAXone 1 GM, Lidocaine 1% 2.1 ML IM ONE ×2 (20:30)
== END 2019-04-25 20:45 | disposition home or self-care (01) ==
LOC: JD.ED 19:49
DX: O99.512 Diseases of the respiratory system complicating pregnancy, second trimester (principal); J45.909 Unspecified asthma, uncomplicated; J01.90 Acute sinusitis, unspecified; Z88.5 Allergy status to narcotic agent; Z88.0 Allergy status to penicillin; Z91.013 Allergy to seafood; Z3A.00 Weeks of gestation of pregnancy not specified
CPT/HCPCS: 96372; 99283; J0696; J2001

== ENCOUNTER 2019-10-05 17:57 | Inpatient (IN) | payer BC ==
[2019-10-05] MEDS ORDERED: Sodium Chloride 0.9% 10 ML Syringe FLUSH PRN (20:19)
[2019-10-05] MEDS ORDERED: Nalbuphine 10 MG/ML Syringe IVPUSH PRN (20:19)
[2019-10-05] MEDS ORDERED: Ondansetron 4 MG/2 ML SDV IVPUSH PRN (20:19)
[2019-10-05] MEDS ORDERED: Lactated Ringers 1,000 ML IV SCH (20:30)
[2019-10-05] MEDS ORDERED: Oxytocin/Lactated Ringers 10 UNIT/1,000 ML BAG IV SCH ×2 (20:30)
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
[2019-10-06] MEDS ORDERED: Lidocaine 1% 50 ML MDV INJECT SCH (09:45)
[2019-10-06] MEDS ORDERED: Acetaminophen 325 MG Tab PO PRN ×2 (11:38→17:50)
--- NOTE | 2019-10-06 14:04 | PCM.PREANE ---
Preanesthetic Assessment - Procedure Proposed Procedure: Epidural - Anesthesia/Transfusion/Family Hx Anesthesia History: Prior Anesthesia Without Reaction Family History of Anesthesia Reaction: No Transfusion History: Prior Transfusion Without Reaction - Review of Systems General: Fatigue, Malaise Pulmonary: No Symptoms Cardiovascular: No Symptoms Gastrointestinal: Abdominal Pain (labor) Neurological: Weakness ("m one side is weaker then the other due to back issues ") Other: Reports: Anxiety - Physical Assessment Vital Signs: Last Vital Signs Temp 36.9 C 10/05/19 19:25 Pulse 114 H 10/05/19 19:25 Resp 16 10/05/19 19:25 BP 132/88 10/05/19 19:25 Pulse Ox 98 10/05/19 19:25 Height: 1.57 m Weight: 97.976 kg ASA Class: 2 Mental Status: Alert & Oriented x3 Airway Class: Mallampati = 1 Dentition: Reports: Normal Dentition Thyro-Mental Finger Breadths: 3 Mouth Opening Finger Breadths: 3 ROM/Head Extension: Full Lungs: Clear to Auscultation, Normal Respiratory Effort Cardiovascular: Regular Rate, Regular Rhythm - Lab Values: Laboratory Last Values WBC 15.80 K/mm3 (3.98-10.04) H 10/05/19 20:30 RBC 4.75 M/mm3 (3.98-5.22) 10/05/19 20:30 Hgb 11.7 gm/dl (11.2-15.7) 10/05/19 20:30 Hct 36.4 % (34.1-44.9) 10/05/19 20:30 MCV 76.6 fl (79.4-94.8) L 10/05/19 20:30 MCH 24.6 pg (25.6-32.2) L 10/05/19 20:30 MCHC 32.1 g/dl (32.2-35.5) L 10/05/19 20:30 RDW Std Deviation 43.0 fL (36.4-46.3) 10/05/19 20:30 Plt Count 220 K/mm3 (182-369) 10/05/19 20:30 MPV 11.4 fl (9.4-12.3) 10/05/19 20:30 Neut % (Auto) 69.9 % (34.0-71.1) 05/26/20 20:30 Lymph % (Auto) 16.2 % (19.3-51.7) L 10/05/19 20:30 [place] % (Auto) 10.4 % (4.7-12.5) 10/05/19 20:30 Eos % (Auto) 2.5 (0.7-5.8) 10/05/19 20:30 Baso % (Auto) 0.2 % (0.1-1.2) 10/05/19 20:30 Neut # (Auto) 11.04 K/mm3 (1.56-6.13) H 10/05/19 20:30 Lymph # (Auto) 2.56 K/mm3 (1.18-3.74) 10/05/19 20:30 [place] # (Auto) 1.65 K/mm3 (0.24-0.36) H 10/05/19 20:30 Eos # (Auto) 0.40 K/mm3 (0.04-0.36) H 10/05/19 20:30 Baso # (Auto) 0.03 K/mm3 (0.01-0.08) 10/05/19 20:30 Manual Slide Review Abnormal smear 10/05/19 20:30 RPR Non-reactive (NONREACTIVE) 10/05/19 20:30 Blood Type O POSITIVE 10/05/19 20: Gel Antibody Screen Negative 10/05/19 20:30 - Allergies Allergies/Adverse Reactions: Allergies Allergy/AdvReac Type Severity Reaction Status Date / Time amoxicillin Allergy Difficulty Verified 10/05/19 23:03 Breathing Fish Containing Products Allergy Difficulty Verified 10/05/19 23:03 Breathing hydrocodone [From Vicodin] Allergy Diarrhea Verified 10/05/19 23:03 - Anesthesia Plan Pre-Op Medication Ordered: None - Acknowledgements Anesthesia Type Planned: Epidural (Due to multiple back surgeries an epidural would be very challenging, I explained to patient that I would attempt but could not guarante any out come, or even if it would work, risks and complications discussed, at this time patient is not interested in an epidural.) Pt an Appropriate Candidate for the Planned Anesthesia: No Alternatives and Risks of Anesthesia Discussed w Pt/Guardian: Yes Pt/Guardian Understands and Agrees with Anesthesia Plan: Yes PreAnesthesia Questionnaire - Past Health History Medical/Surgical History: Denies Medical/Surgical History HEENT History: Reports: Other (See Below) Other HEENT History: glasses for correction, last eye exam years ago Cardiovascular History: Reports: None (denies cardiac history) Respiratory History: Reports: Asthma, Pneumothorax (complication from one back surgery) Other Respiratory History: admits history of asthma aggitated by Summer season and cigarette smoke, currently has proair, rescue inhailer (last used December), and dulera. 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 history of 2 spontaneous miscarriages #1 at 7weeks#2 at 6 weeks Musculoskeletal History: Reports: Fracture Neurological History: Reports: None Psychiatric History: Reports: None Endocrine/Metabolic History: Reports: None Hematologic History: Reports: None Other Hematologic History: Low MCV, previous blood transfusion with no reaction Immunologic History: Reports: None Oncologic (Cancer) History: Reports: None Dermatologic History: Reports: None - Infectious Disease History Infectious Disease History: Reports: None - Past Surgical History HEENT Surgical History: Reports: None Other HEENT Surgeries/Procedures: wears glasses Musculoskeletal Surgical History: Reports: Other (See Below) Other Musculoskeletal Surgeries/Procedures:: Ankle surg x2, back surg x4, heal cord lengthening - SUBSTANCE USE Smoking Status *Q: Never Smoker Tobacco Use Within Last Twelve Months: No Recreational Drug Use History: No - HOME MEDS Home Medications: Home Meds Albuterol Sulfate [Proair Hfa] 8.5 gm IH Q4HR 08/18/19 [History] Ferrous Sulfate [Iron] 325 mg PO DAILY 08/18/19 [History] Folic Acid 1 mg PO DAILY 08/18/19 [History] Mometasone/Formoterol [Dulera 100 Mcg/5 Mcg Inhaler] 8.8 gm IH Q12HR 08/18/19 [ History] No122/Iron/Folic Acid [ Multi Tablet] 1 each PO DAILY 08/18/19 [History] Docusate Sodium [Colace] 1 cap PO ASDIRECTED PRN 10/05/19 [History] Omeprazole Magnesium [Prilosec Otc] 1 tab PO DAILY 10/05/19 [History] - CURRENT (IN HOUSE) MEDS Current Meds: Current Medications Acetaminophen (Tylenol) 650 mg PO Q4H PRN PRN Reason: Pain Last Admin: 10/06/19 12:14 Dose: 650 mg Lactated Ringer's (Ringers, Lactated) 1,000 mls @ 100 mls/hr IV ASDIRECTED YANIV Last Admin: 10/05/19 21:16 Dose: 100 mls/hr Oxytocin/Lactated Ringer's (Pitocin In Lr 10 Units/1,000 Ml) 10 unit in 1,000 mls @ 12 mls/hr IV TITRATE YANIV; Protocol Last Titration: 10/06/19 10:45 Dose: 14 munits/min, 84 mls/hr Oxytocin/Lactated Ringer's (Pitocin In Lr 10 Units/1,000 Ml) 10 unit in 1,000 mls @ 100 mls/hr IV .CONTINUOUS YANIV Vancomycin HCl 1 gm/ Sodium (Chloride) 250 mls @ 167 mls/hr IV Q12HR YANIV Last Admin: 10/06/19 09:00 Dose: 167 mls/hr Lidocaine HCl (Xylocaine 1%) 1 ml INJECT ASDIRECTED YANIV Nalbuphine HCl (Nubain) 10 mg IVPUSH Q2H PRN PRN Reason: Pain Last Admin: 10/06/19 13:05 Dose: 10 mg Ondansetron HCl (Zofran) 4 mg IVPUSH Q4H PRN PRN Reason: Nausea/Vomiting Sodium Chloride (Saline Flush) 10 ml FLUSH ASDIRECTED PRN PRN Reason: Keep Vein Open
[2019-10-06] MEDS ORDERED: Docusate Sodium 100 MG Cap PO PRN (17:50)
[2019-10-06] MEDS ORDERED: Witch Hazel Medicated Pads 40/Jar TOP PRN (17:50)
[2019-10-06] MEDS ORDERED: Benzocaine/Menthol 20%-0.5% Spray 56 GM Canister TOP PRN (17:50)
--- NOTE | 2019-10-06 17:56 | PCM.SN.2 ---
- Free Text/Narrative Note: Delivery note: Kalie is a 29-year-old 4 para 1021 white female at 36-5/7 weeks gestational age with an FANNY of 10/29/2019 who is evaluated in outpatient labor and delivery on the evening of 10/05/2019. for contractions that began earlier in the day. Her cervix is changed from 1-2 cm to 3+ centimeters and contractions are persistent every 3-4 minutes. Patient did well throughout labor. She did not use anything for pain medication. She became completely dilated at approximately 1400 hrs. At 1427 hrs. on 10/06/2019 she delivered a viable, mathis, male with Apgars of 8 and 9, weight of 3570 g (7 pounds 13.9 ounces), a length of 21.0 inches in a direct occiput anterior position. Baby was placed on mom's abdomen and the nose and mouth were bulb suctioned. Baby was dried with a warm blanket. Pitocin was increased to 500 mL an hour IV to facilitate increased uterine tone and decrease likelihood of bleeding. The umbilical cord was allowed to pulsate for 2-3 minutes and then was clamped 2 and cut by the baby's father Isaac. Cord was obtained. The order was noted to have 3 blood vessels. All perineal lacerationfirst-degree in nature was then repaired using 3-0 Monocryl with 2 sutures. The area was infiltrated lidocaine 1%approximate 5 mL total. The placenta delivered in a Ann presentation at 1435 hrs., appeared intact and complete and was discarded per patient desire. Estimated blood loss was 100 mL. Patient plans to bottlefeed. Condition: Good.
[2019-10-06] MEDS: Ibuprofen 600 MG Tab PO PRN (19:54)
[2019-10-06] MEDS: Formoterol/Mometasone 100-5 MCG 8.8 GM Inhaler IH SCH (22:03)
[2019-10-07] MEDS: Ibuprofen 600 MG Tab PO PRN ×2 (05:39→11:08)
[2019-10-07] MEDS: Formoterol/Mometasone 100-5 MCG 8.8 GM Inhaler IH SCH (08:19)
--- NOTE | 2019-10-07 08:39 | PCM.SN.2 ---
- Free Text/Narrative Note: note: Patient is doing well in the period. Minimal lochia, voiding well, ambulated without problems. Nursing without concerns. Baby is on O2 per nasal cannula. [place] to be secondary to early gestational age time delivery. Doing well in general and is being weaned off of O2. Patient is afebrile, vital signs are stable Abdomen is flat, soft, uterus is below the umbilicus and is firm and nontender. Legs are nontender. Assessment: recovery going well. Plan: Routine care. Patient be discharged home within the next 24-48 hours.
[2019-10-07] MEDS ORDERED: Prenatal Multivitamin with Calcium/Folic Acid/Iron Tab PO SCH (09:00)
--- NOTE | 2019-10-07 13:40 | PCM.DCSUM1 ---
Discharge Summary - Hospital Course Free Text/Narrative:: Kalie is a 29-year-old 4 para 1021 white female at 36-5/7 weeks gestational age with an FANNY of 10/29/2019 who is evaluated in outpatient labor and delivery on the evening of 10/05/2019. for contractions that began earlier in the day. Her cervix is changed from 1-2 cm to 3+ centimeters and contractions are persistent every 3-4 minutes. Patient did well throughout labor. She did not use anything for pain medication. She became completely dilated at approximately 1400 hrs. At 1427 hrs. on 10/06/2019 she delivered a viable, mathis, male with Apgars of 8 and 9, weight of 3570 g (7 pounds 13.9 ounces), a length of 21.0 inches in a direct occiput anterior position. Baby was placed on mom's abdomen and the nose and mouth were bulb suctioned. Baby was dried with a warm blanket. Pitocin was increased to 500 mL an hour IV to facilitate increased uterine tone and decrease likelihood of bleeding. The umbilical cord was allowed to pulsate for 2-3 minutes and then was clamped 2 and cut by the baby's father Isaac. Cord was obtained. The order was noted to have 3 blood vessels. All perineal lacerationfirst-degree in nature was then repaired using 3-0 Monocryl with 2 sutures. The area was infiltrated lidocaine 1%approximate 5 mL total. The placenta delivered in a Ann presentation at 1435 hrs., appeared intact and complete and was discarded per patient desire. Estimated blood loss was 100 mL. Patient plans to bottlefeed. Start patient is done well. She is desiring discharge home. Condition: Good. - Discharge Data Discharge Date: 10/07/19 Discharge Disposition: Home, Self-Care 01 Condition: Good - Referral to Home Health Primary Care Physician: Gurjit Hurst MD - Patient Instructions Diet: Regular Diet as Tolerated Activity: As Tolerated (No intercourse or tampons until bleeding resolves) Driving: May Drive Today Showering/Bathing: May Shower Notify Provider of: Fever, Increased Pain, Swelling and Redness, Nausea and/or Vomiting - Discharge Plan Home Medications: Home Meds Albuterol Sulfate [Proair Hfa] 8.5 gm IH Q4HR 08/18/19 [History] Ferrous Sulfate [Iron] 325 mg PO DAILY 08/18/19 [History] Folic Acid 1 mg PO DAILY 08/18/19 [History] Mometasone/Formoterol [Dulera 100 Mcg/5 Mcg Inhaler] 8.8 gm IH Q12HR 08/18/19 [ History] No122/Iron/Folic Acid [ Multi Tablet] 1 each PO DAILY 08/18/19 [History] Docusate Sodium [Colace] 1 cap PO ASDIRECTED PRN 10/05/19 [History] Omeprazole Magnesium [Prilosec Otc] 1 tab PO DAILY 10/05/19 [History] Acetaminophen [Tylenol] 650 mg PO Q4H PRN tablet 10/07/19 [Rx] Ibuprofen [Motrin] 600 mg PO Q4H PRN tablet 10/07/19 [Rx] Referrals: Gurjit Hurst MD [Primary Care Provider] - - Discharge Summary/Plan Comment DC Time >30 min.: No Discharge Summary/Plan Comment: Discharge instructions: 1. Discharge home 2. Diet, activity and follow-up discussed with patient. Recommend nursing diet with increased calories and calcium. 3. Precautions given concern increased pain, bleeding, temperature, signs/ symptoms of DVT/PE. 4. Medications per home medication was printed, discussed with and given to the patient. 5. Return to clinic-Dr. Aris paz, nurse practitioner-[facility] in 2 weeks. Diagnosis: Term -delivered Condition: Good - Patient Data Vitals - Most Recent: Last Vital Signs Temp 36.4 C 10/07/19 11:03 Pulse 81 10/07/19 11:03 Resp 14 10/07/19 11:03 BP 121/53 L 10/07/19 11:03 Pulse Ox 97 10/07/19 11:03 Weight - Most Recent: 97.976 kg I&O - Last 24 hours: Intake & Output 10/06/19 10/07/19 10/07/19 22:59 06:59 14:59 Intake Total 1300 225 Balance 1300 225 Med Orders - Current: Current Medications Acetaminophen (Tylenol) 650 mg PO Q4H PRN PRN Reason: mild pain or fever Benzocaine/Menthol (Dermoplast Pain Relief [place]) 0 gm TOP ASDIRECTED PRN PRN Reason: Perineal Comfort Measure Last Admin: 10/06/19 19:53 Dose: 1 canister Docusate Sodium (Colace) 100 mg PO BID PRN PRN Reason: Constipation Ibuprofen (Motrin) 600 mg PO Q4H PRN PRN Reason: Mild pain or fever Last Admin: 10/07/19 11:08 Dose: 600 mg Mometasone Furoate/Formoterol Fumar (Dulera 100-5 Mcg) 2 puff IH Q12HR YANIV Last Admin: 10/07/19 08:19 Dose: Not Given Prenat Multivit/[place]/Iron/Folic Ac ( Plus Iron) 1 each PO DAILY YANIV Last Admin: 10/07/19 11:00 Dose: 1 each [place] (Tucks) 1 pad TOP ASDIRECTED PRN PRN Reason: Perineal Comfort Measure Last Admin: 10/06/19 19:54 Dose: 1 tub Discontinued Medications Acetaminophen (Tylenol) 650 mg PO Q4H PRN PRN Reason: Pain Last Admin: 10/06/19 12:14 Dose: 650 mg Lactated Ringer's (Ringers, Lactated) 1,000 mls @ 100 mls/hr IV ASDIRECTED [facility] Last Admin: 10/05/19 21:16 Dose: 100 mls/hr Oxytocin/Lactated Ringer's (Pitocin In Lr 10 Units/1,000 Ml) 10 unit in 1,000 mls @ 12 mls/hr IV TITRATE YANIV; Protocol Last Titration: 10/06/19 10:45 Dose: 14 munits/min, 84 mls/hr Oxytocin/Lactated Ringer's (Pitocin In Lr 10 Units/1,000 Ml) 10 unit in 1,000 mls @ 100 mls/hr IV .CONTINUOUS YANIV Last Admin: 10/06/19 16:16 Dose: 100 mls/hr Vancomycin HCl 1 gm/ Sodium (Chloride) 250 mls @ 167 mls/hr IV Q12HR YANIV Last Admin: 10/06/19 09:00 Dose: 167 mls/hr Lidocaine HCl (Xylocaine 1%) 1 ml INJECT ASDIRECTED [facility] Last Admin: 10/06/19 15:11 Dose: 2 ml Nalbuphine HCl (Nubain) 10 mg IVPUSH Q2H PRN PRN Reason: Pain Last Admin: 10/06/19 13:05 Dose: 10 mg Ondansetron HCl (Zofran) 4 mg IVPUSH Q4H PRN PRN Reason: Nausea/Vomiting Sodium Chloride (Saline Flush) 10 ml FLUSH ASDIRECTED PRN PRN Reason: Keep Vein Open
== END 2019-10-07 13:54 | disposition home or self-care (01) | DRG 560 ==
LOC: JD.OBCHECK 17:57 → JD.OB 17:57 → JD.OBCHECK 20:19 → JD.OB 21:38 → OBSVTOIN 10-06 14:27 → JD.OB 10-06 14:49
PROVIDERS: ADMIT Obstetrics & Gynecology; ATTEND Obstetrics & Gynecology
PROC: 10E0XZZ Delivery of Products of Conception, External Approach (ICD-10-PCS; principal; 2019-10-06)
PROC: 3E0R3BZ Introduction of Anesthetic Agent into Spinal Canal, Percutaneous Approach (ICD-10-PCS; 2019-10-06)
PROC: 0HQ9XZZ Repair Perineum Skin, External Approach (ICD-10-PCS; 2019-10-06)
DX: O99.824 Streptococcus B carrier state complicating childbirth (principal); Z3A.36 36 weeks gestation of pregnancy; Z37.0 Single live birth; O70.0 First degree perineal laceration during delivery; O99.62 Diseases of the digestive system complicating childbirth; O99.52 Diseases of the respiratory system complicating childbirth; K21.9 Gastro-esophageal reflux disease without esophagitis; J45.909 Unspecified asthma, uncomplicated
CPT/HCPCS: 36415; 59025; 59409; 85025; 86592; 86850; 86900; 86901; A9270-GY; J2001; J2300; J2590; J3370; J7050; J7120